=== PATIENT | female | born 1980 | race Caucasian/White ===

== ENCOUNTER 2018-08-22 10:48 | Emergency (ER) | payer OTHER ==
--- OUTSIDE RECORDS SUMMARY | 2018-08-22 10:50 | XMS REPORT | Clinical Summary ---
:1980 Author Organization [facility] Address [address] [place] [id number] Care Team Providers Name Role Phone Jennifer Cohen MD Primary Care Provider Allergies No Known Allergies Medications Medication Sig Dispensed Refills Start Date End Date Status metoprolol succinate XL 0 07/26/2017 Active (TOPROL-XL) 100 mg 24 hr tablet losartan (COZAAR) 100 MG 0 07/12/2017 Active tablet pravastatin (PRAVACHOL) 0 05/22/2017 Active 40 MG tablet levothyroxine (SYNTHROID, 0 08/10/2017 Active LEVOXYL) 125 mcg tablet diclofenac (VOLTAREN) 75 0 08/14/2017 Active MG EC tablet ERGOCALCIFEROL, VITAMIN Take by mouth. 0 Active D2, (VITAMIN D2 ORAL) Active Problems Not on file Encounters Date Type Specialty Care Team Description 08/22/2017 Telephone Otolaryngology Tanika Gardner MA after 08/21/2017 Family History Medical History Relation Name Comments Diabetes Father Heart disease Father Heart disease Maternal Grandfather Heart disease Mother Thyroid disease Mother Cancer Paternal Grandfather Thyroid disease Sister Relation Name Status Comments Father Maternal Grandfather Mother Paternal Grandfather Sister Social History Tobacco Use Types Packs/Day Years Used Date Former Smoker Smokeless Tobacco: Never Used Alcohol Use Drinks/Week oz/Week Comments No Sex Assigned at Date Recorded Not on file Job Start Date Occupation Industry Not on file Not on file Not on file Travel History Travel Start Travel End No recent travel history available. Last Filed Vital Signs Not on file Plan of Treatment Health Maintenance Due Date Last Done Comments CERVICAL CANCER SCREENING 2001 INFLUENZA VACCINE 12/10/2018 Results Not on fileafter 08/21/2017 Insurance Payer Benefit Plan / Group Subscriber ID Type Phone Address AETNA AETNA HMO,POS,EPO, MC/EC xxxxxxxxx HMO Advance Directives Patient has advance care planning documents on file. For more information, please contact:Cachorro [address] [place] [address]
[2018-08-22] MEDS ORDERED: ONDANSETRON 4 MG/2 ML VIAL ONE ×2 (11:24→12:15)
[2018-08-22] MEDS ORDERED: MORPHINE 2 MG/ML SYR ONE (11:24)
[2018-08-22] MEDS ORDERED: FAMOTIDINE 20 MG/2 ML VIAL IV ONE (11:25)
[2018-08-22] MEDS ORDERED: NA CHLORIDE 0.9% 1,000 ML ONE (11:25)
[2018-08-22 12:05] LABS: Absolute Lymphocytes (CBC) 1.4 K/uL (0.7-4.9); Absolute Monocytes 0.5 K/uL (0.1-1.3); Absolute Neutrophil 4.4 K/uL (1.8-8.0); Basophils % 0.7 % (0-1.3); Eosinophils % 1.1 % (0-4.4); Hematocrit 39.6 % (36.0-45.0); Lymphocytes % 22.3 % (15.3-44.8); MPV 8.8 fL (7.6-11.3); Monocytes % 8.1 % (3.3-12.3); RBC Red Blood Cell Count 4.36 M/uL (3.86-4.86)
[2018-08-22 12:05] LABS: Urine Bacteria <20 /HPF (<20)
[2018-08-22 12:06] LABS: Urine Amorphous Sediment 1+ /HPF (NONE SEEN); Urine Culture Reflex Order NOT NEEDED
--- NOTE | 2018-08-22 12:06 | RAD REPORT ---
EXAM DESCRIPTION: CT - Abdomen Pelvis W Contrast - 08/22/2018 11:40 am CLINICAL HISTORY: Abdominal pain/ right flank pain. COMPARISON: none. TECHNIQUE: Computed axial tomography of the abdomen pelvis was obtained. 100 cc Isovue-300 was admin istered intravenously. Oral contrast was not requested which limits evaluation of bowel. All CT scans are performed using dose optimization technique as appropriate and may include automated exposure control or mA/KV adjustment according to patient size. FINDINGS: The liver, spleen, pancreas, adrenal and kidneys appear unremarkable. There is no evidence of diverticulitis. A normal appendix A gastric band in place. A 13 millimeter right ovarian follicles present. Minimal free fluid The gallbladder has been removed. Mild prominence of common bile duct. Fluid is present within nondilated small bowel IMPRESSION: Mild prominence of the common bile duct probably is physiologic in this patient status p ost cholecystectomy. As pathology can also result in this appearance should be correlated clinically with appropriate lab values. . Fluid within nondilated small bowel is a nonspecific finding but can be seen in an enteritis
[2018-08-22 12:08] LABS: Urine Blood 2+ (NEG); Urine Glucose NEGATIVE (NEG); Urine Protein NEGATIVE (NEG)
[2018-08-22 12:14] LABS: Albumin 3.9 g/dL (3.4-5.0); Bilirubin Direct 0.1 mg/dL (0-0.2); Bilirubin Total 0.5 mg/dL (0.2-1.0); Magnesium 2.1 mg/dL (1.8-2.4); Potassium 4.1 mmol/L (3.5-5.1); Protein, Total 6.7 g/dL (6.4-8.2)
[2018-08-22] MEDS ORDERED: KETOROLAC 30 MG/ML INJ ONE (12:39)
--- NOTE | 2018-08-22 13:04 | EDPHYS ---
Physician Documentation [facility] Name: Ema Maurer Age: 38 yrs Sex: Female : 1980 Arrival Date: 08/22/2018 Time: 10:51 Bed 19 Private MD: Jennifer Cohen K ED Physician Shan Belcher HPI: 08/22 11:10 This 38 yrs old Female presents to ER via Ambulatory with complaints of Back cp Pain, Abdominal Pain, Nausea. 11:10 The patient presents with pain that is acute, with no known mechanism of injury, and cp tenderness. The symptoms are located in the right low back. 11:10 Onset: The symptoms/episode began/occurred 2 day(s) ago. cp 11:10 The patient presents with abdominal pain in the epigastric area. Associated signs and cp symptoms: Pertinent positives: nausea, Pertinent negatives: fever, incontinence, urinary retention, vomiting. Historical: - Allergies: 10:55 No Known Allergies; la1 - Home Meds: 11:51 Methotrexate (Anti-Rheumatic) Oral 20 mg 1 x weeekly [Active]; folic acid 1 mg oral tab em 1 tab once daily [Active]; Plaquenil 200 mg Oral tab 2 tabs once daily [Active]; pravastatin 40 mg oral tab 1 tab once daily [Active]; losartan 100 mg oral tab 1 tab once daily [Active]; metoprolol tartrate 100 mg Oral tab [Active]; levothyroxine 150 mcg tab 1 tab once daily [Active]; - PMHx: 10:55 Rheumatoid Arthritis; hashimotos thyroiditis; High Cholesterol; Hypertension; kidney la1 stones; bile duct obstruction; - PSHx: 10:55 Cholecystectomy; ERPC x 2; lap band; left knee; la1 - Immunization history:: Adult Immunizations up to date. - Social history:: Smoking status: Patient/guardian denies using tobacco. - Ebola Screening: : No symptoms or risks identified at this time. ROS: 11:15 Constitutional: Negative for body aches, chills, fever, poor PO intake. cp 11:15 Eyes: Negative for injury, pain, redness, and discharge. cp 11:15 Cardiovascular: Negative for chest pain, edema, palpitations. 11:15 Respiratory: Negative for cough, shortness of breath, wheezing. 11:15 Abdomen/GI: Positive for abdominal pain, nausea, of the epigastric area, Negative for vomiting, diarrhea, constipation, black/tarry stool, rectal bleeding. 11:15 Back: Positive for pain at rest, pain with movement, of the right low back. 11:15 : Negative for urinary symptoms. 11:15 Skin: Negative for rash. 11:15 Neuro: Negative for altered mental status, dizziness, headache, weakness. 11:15 All other systems are negative. Exam: 11:20 Constitutional: The patient appears in no acute distress, alert, awake, cp non-diaphoretic, non-toxic, well developed, well nourished. 11:20 Head/Face: Normocephalic, atraumatic. cp 11:20 Eyes: Periorbital structures: appear normal, Conjunctiva: normal, no exudate, no injection, Sclera: no appreciated abnormality, Lids and lashes: appear normal, bilaterally. 11:20 ENT: External ear(s): are unremarkable, Nose: is normal, Mouth: Lips: moist, Oral mucosa: pink and intact, moist, Posterior pharynx: is normal, airway is patent, no erythema, no exudate. 11:20 Chest/axilla: Inspection: normal, Palpation: is normal, no crepitus, no tenderness. 11:20 Cardiovascular: Rate: normal, Rhythm: regular. 11:20 Respiratory: the patient does not display signs of respiratory distress, Respirations: normal, no use of accessory muscles, no retractions, no splinting, no tachypnea, labored breathing, is not present, Breath sounds: are clear throughout, no decreased breath sounds, no stridor, no wheezing. 11:20 Abdomen/GI: Inspection: abdomen appears normal, Bowel sounds: active, all quadrants, Palpation: soft, in all quadrants, moderate abdominal tenderness, in the epigastric area, rebound tenderness, is not appreciated, voluntary guarding, is elicited in the epigastric area. 11:20 Back: pain, that is moderate, of the right low back, ROM is normal. 11:20 Skin: no rash present. 11:20 Neuro: Orientation: to person, place \T\ time. Mentation: is normal, Cerebellar function: is grossly normal, Motor: moves all fours, strength is normal, Sensation: is normal. Vital Signs: 10:55 BP 131 / 89; Pulse 72; Resp 16; Temp 99.1(TE); Pulse Ox 100% on R/A; Weight 95.25 kg; la1 Height 5 ft. 3 in. (160.02 cm); Pain 5/10; 11:30 BP 144 / 74; Pulse 66; Resp 20; Pulse Ox 100% on R/A; em 12:00 BP 124 / 87; Pulse 61; Resp 18; Pulse Ox 97% on R/A; Pain 4/10; em 13:00 BP 112 / 78; Pulse 63; Resp 16; Pulse Ox 100% on R/A; em 10:55 Body Mass Index 37.20 (95.25 kg, 160.02 cm) la1 MDM: 10:59 Patient medically screened. cp 11:30 Differential diagnosis: Hydronephrosis Perforated Ulcer Ureterolithiasis appendicitis, cp bowel obstruction, diverticulitis, pancreatitis, Peptic Ulcer Disease, Perf. Duodenal Ulcer, Perf. Gastric Ulcer. 13:00 Data reviewed: vital signs, nurses notes, lab test result(s), radiologic studies, CT cp scan. 13:00 Counseling: I had a detailed discussion with the patient and/or guardian regarding: the cp historical points, exam findings, and any diagnostic results supporting the discharge/admit diagnosis, lab results, radiology results, to return to the emergency department if symptoms worsen or persist or if there are any questions or concerns that arise at home. Response to treatment: the patient's symptoms have markedly improved after treatment, and as a result, I will discharge patient. 08/22 10:57 Order name: Urine Culture [facility] 08/22 10:57 Order name: Urine Microscopic Only; Complete Time: 12:15 snw 08/22 12:16 Interpretation: Normal except: URBC 5-10. cp 08/22 11:07 Order name: Basic Metabolic Panel cp 08/22 11:07 Order name: CBC with Diff cp 08/22 11:07 Order name: Creatinine for Radiology; Complete Time: 12:15 cp 08/22 11:07 Order name: Hepatic Function; Complete Time: 12:15 cp 08/22 12:40 Interpretation: Normal except: AST 14. cp 08/22 11:07 Order name: Lipase; Complete Time: 12:15 cp 08/22 11:07 Order name: CT Abd/Pelvis - W/Contrast; Complete Time: 12:15 cp 08/22 11:07 Order name: Magnesium; Complete Time: 12:15 cp 08/22 11:08 Order name: Basic Metabolic Panel; Complete Time: 12:15 EDMS 08/22 12:40 Interpretation: Normal except: CL 110; BUN 6; GFR 85. cp 08/22 11:08 Order name: CBC with Automated Diff; Complete Time: 12:15 EDMS 08/22 11:17 Order name: Urine Dipstick--Ancillary (enter results); Complete Time: 12:15 eb 08/22 11:17 Order name: Urine --Ancillary (enter results); Complete Time: 12:15 eb 08/22 10:57 Order name: Urine Test (obtain specimen); Complete Time: 11:06 snw 08/22 10:57 Order name: Urine Dipstick-Ancillary (obtain specimen); Complete Time: 11:06 snw 08/22 11:07 Order name: IV Saline Lock; Complete Time: 11:41 cp 08/22 11:07 Order name: Labs collected and sent; Complete Time: 11:41 cp 08/22 12:19 Order name: PO challenge; Complete Time: 12:48 cp Administered Medications: 11:28 Drug: Zofran 4 mg Route: IVP; Site: right antecubital; ss 12:04 Follow up: Response: No adverse reaction; Nausea unchanged em 11:28 Drug: Pepcid 20 mg Route: IVP; Site: right antecubital; ss 12:04 Follow up: Response: No adverse reaction em 11:28 Drug: morphine 2 mg Route: IVP; Site: right antecubital; ss 12:05 Follow up: Response: No adverse reaction; Pain is decreased em 11:28 Drug: NS 0.9% 1000 ml Route: IV; Rate: 1 bolus; Site: right antecubital; ss 13:22 Follow up: IV Status: Completed infusion; IV Intake: 1000ml em 12:04 Drug: Zofran 4 mg Route: IVP; Site: right antecubital; em 12:48 Follow up: Response: No adverse reaction; Nausea is decreased em 12:41 Drug: TORadol 30 mg Route: IVP; Site: right antecubital; la1 13:17 Follow up: Response: No adverse reaction; Pain is decreased em Disposition: 08/22/18 13:03 Discharged to Home. Impression: Epigastric pain, Low back pain. - Condition is Stable. - Discharge Instructions: Back Pain, Adult, Gastritis, Adult. - Prescriptions for Protonix 40 mg Oral Tablet, Delayed Release (E.C.) - take 1 tablet by ORAL route once daily for 10 days; 10 tablet. Zofran 4 mg Oral Tablet - take 1 tablet by ORAL route every 12 hours As needed; 20 tablet. - Medication Reconciliation Form, Thank You Letter, Antibiotic Education, Prescription Opioid Use form. - Follow up: Jon Tan MD; When: 2 - 3 days; Reason: abdominal pain continues. - Problem is new. - Symptoms have improved. Addendum: 08/24/2018 08:02 Co-signature as Attending Physician, Shan Belcher MD Available for consultation at p s1 all times. . Signatures: Dispatcher [employer] EDSD Sara Herrmann, ALEXIS-C SPEEDER HAND-Csnw Nathan Dominguez, CONTINUOUS ABSORPTION PROCESS OPERATOR CONTINUOUS ABSORPTION PROCESS OPERATOR em Chari Cristobal RN RN ss Robel Alvarez RN RN la1 Kevin Moe PA PA cp Shan Belcher MD MD ps1 Corrections: (The following items were deleted from the chart) 08/22 13:22 13:03 08/22/2018 13:03 Discharged to Home. Impression: Epigastric pain; Low back pain. em Condition is Stable. Forms are Medication Reconciliation Form, Thank You Letter, Antibiotic Education, Prescription Opioid Use. Follow up: Jon Tan; When: 2 - 3 days; Reason: abdominal pain continues. Problem is new. Symptoms have improved. cp
--- NOTE | 2018-08-22 13:04 | ER ---
Nurse's Notes [facility] Name: Ema Maurer Age: 38 yrs Sex: Female : 1980 Arrival Date: 08/22/2018 Time: 10:51 Bed 19 Private MD: Jennifer Cohen K Diagnosis: Epigastric pain;Low back pain Presentation: 08/22 10:56 Presenting complaint: Patient states: mid epigastric pain and right flank pain since la1 , felt better on Friday, pain came back last night. Transition of care: patient was not received from another setting of care. Onset of symptoms was August 22, 2018. Risk Assessment: Do you want to hurt yourself or someone else? Patient reports no desire to harm self or others. Initial Sepsis Screen: Does the patient meet any 2 criteria? No. Patient's initial sepsis screen is negative. Does the patient have a suspected source of infection? No. Patient's initial sepsis screen is negative. Care prior to arrival: None. 10:56 Method Of Arrival: Ambulatory la1 10:56 Acuity: APRIL 3 la1 Historical: - Allergies: 10:55 No Known Allergies; la1 - Home Meds: 11:51 Methotrexate (Anti-Rheumatic) Oral 20 mg 1 x weeekly [Active]; folic acid 1 mg oral tab em 1 tab once daily [Active]; Plaquenil 200 mg Oral tab 2 tabs once daily [Active]; pravastatin 40 mg oral tab 1 tab once daily [Active]; losartan 100 mg oral tab 1 tab once daily [Active]; metoprolol tartrate 100 mg Oral tab [Active]; levothyroxine 150 mcg tab 1 tab once daily [Active]; - PMHx: 10:55 Rheumatoid Arthritis; hashimotos thyroiditis; High Cholesterol; Hypertension; kidney la1 stones; bile duct obstruction; - PSHx: 10:55 Cholecystectomy; ERPC x 2; lap band; left knee; la1 - Immunization history:: Adult Immunizations up to date. - Social history:: Smoking status: Patient/guardian denies using tobacco. - Ebola Screening: : No symptoms or risks identified at this time. Screenin:10 Abuse screen: Denies threats or abuse. Nutritional screening: No deficits noted. em Tuberculosis screening: No symptoms or risk factors identified. Fall Risk None identified. Assessment: 11:10 General: Appears in no apparent distress. uncomfortable, Behavior is calm, cooperative, em Denies fever. Pain: Complains of pain in right lower back and epigastric area Pain currently is 5 out of 10 on a pain scale. at worst was 10 out of 10 on a pain scale. Quality of pain is described as sharp, Pain began 2-3 days ago. Neuro: Level of Consciousness is awake, alert, obeys commands, Oriented to person, place, time, situation. Cardiovascular: Capillary refill < 3 seconds Patient's skin is warm and dry. Respiratory: Reports shortness of breath pain with respiration Airway is patent Respiratory effort is even, unlabored, Respiratory pattern is regular, symmetrical, Breath sounds are clear bilaterally. GI: Abdomen is round non-distended, Bowel sounds present X 4 quads. Abd is soft X 4 quads Abdomen is tender to palpation in epigastric area Reports nausea, Patient currently denies diarrhea. : Denies burning with urination, urinary frequency. Derm: Skin is intact, is healthy with good turgor, Skin is pink, warm \T\ dry. Musculoskeletal: Capillary refill < 3 seconds, Range of motion: intact in all extremities. 11:15 Reassessment: The previous assessment is accurate, call light remains within reach. ss 11:55 Reassessment: Patient appears in no apparent distress at this time. Patient and/or em family updated on plan of care and expected duration. Pain level reassessed. reports nausea medication has not helped, provider notified, new medication orders received. 13:16 Reassessment: Patient appears in no apparent distress at this time. Patient and/or em family updated on plan of care and expected duration. Pain level reassessed. Patient is alert, oriented x 3, equal unlabored respirations, skin warm/dry/pink. rates pain 3/10, tolerated PO challenge well Patient states feeling better. Patient states symptoms have improved. Vital Signs: 10:55 BP 131 / 89; Pulse 72; Resp 16; Temp 99.1(TE); Pulse Ox 100% on R/A; Weight 95.25 kg; la1 Height 5 ft. 3 in. (160.02 cm); Pain 5/10; 11:30 BP 144 / 74; Pulse 66; Resp 20; Pulse Ox 100% on R/A; em 12:00 BP 124 / 87; Pulse 61; Resp 18; Pulse Ox 97% on R/A; Pain 4/10; em 13:00 BP 112 / 78; Pulse 63; Resp 16; Pulse Ox 100% on R/A; em 10:55 Body Mass Index 37.20 (95.25 kg, 160.02 cm) la1 ED Course: 10:51 Patient arrived in ED. mr 10:52 Jennifer Cohen MD is Private Physician. mr 10:57 Triage completed. la1 10:57 Arm band placed on left wrist. la1 10:58 Nathan Dominguez LVN is Primary Nurse. em 10:59 Kevin Moe PA is PHCP. cp 10:59 Shan Belcher MD is Attending Physician. cp 11:10 Patient has correct armband on for positive identification. Placed in gown. Bed in low em position. Call light in reach. Adult w/ patient. Pulse ox on. NIBP on. 11:11 Urine Culture Sent. mh5 11:11 Urine Microscopic Only Sent. mh5 11:17 Radiology exam delayed due to test not completed at this time. vm2 11:39 CT completed. Patient tolerated procedure well. Patient moved back from CT. vm2 11:40 CT Abd/Pelvis - W/Contrast In Process Unspecified. EDMS 13:03 Jon Tan MD is Referral Physician. cp 13:16 No provider procedures requiring assistance completed. IV discontinued, intact, em bleeding controlled, No redness/swelling at site. Pressure dressing applied. Administered Medications: 11:28 Drug: Zofran 4 mg Route: IVP; Site: right antecubital; ss 12:04 Follow up: Response: No adverse reaction; Nausea unchanged em 11:28 Drug: Pepcid 20 mg Route: IVP; Site: right antecubital; ss 12:04 Follow up: Response: No adverse reaction em 11:28 Drug: morphine 2 mg Route: IVP; Site: right antecubital; ss 12:05 Follow up: Response: No adverse reaction; Pain is decreased em 11:28 Drug: NS 0.9% 1000 ml Route: IV; Rate: 1 bolus; Site: right antecubital; ss 13:22 Follow up: IV Status: Completed infusion; IV Intake: 1000ml em 12:04 Drug: Zofran 4 mg Route: IVP; Site: right antecubital; em 12:48 Follow up: Response: No adverse reaction; Nausea is decreased em 12:41 Drug: TORadol 30 mg Route: IVP; Site: right antecubital; la1 13:17 Follow up: Response: No adverse reaction; Pain is decreased em Intake: 13:22 IV: 1000ml; Total: 1000ml. em Outcome: 13:03 Discharge ordered by MD. cp 13:20 Discharged to home ambulatory, with family. em 13:20 Condition: good 13:20 Discharge instructions given to patient, family, Instructed on discharge instructions, follow up and referral plans. medication usage, Demonstrated understanding of instructions, follow-up care, medications, Prescriptions given X 2. 13:22 Patient left the ED. em Signatures: Dispatcher [employer] Clarisse Galeano Dominguez, Nathan, STORE PRODUCT DEMONSTRATOR STORE PRODUCT DEMONSTRATOR em Chari Cristobal RN RN ss Attema, Lee, RN RN la1 Kevin Moe PA PA cp Martinez, Maria [address] StreetDarsh[address] [facility]
[2018-08-22 13:29] VITALS: TEMP 99.1
[2018-08-22 13:33] VITALS: BP 112/78; O2SAT 100
== END 2018-08-22 13:22 | disposition home or self-care (01) ==
LOC: ER 10:48
DX: M54.5 Low back pain (principal); R10.13 Epigastric pain; E06.3 Autoimmune thyroiditis; I10 Essential (primary) hypertension; E78.00 Pure hypercholesterolemia, unspecified
CPT/HCPCS: 36415; 74177; 80048; 80076; 81003; 81015; 81025; 83690; 83735; 85025; 87086; 87088; 96361; 96374; 96375; 99284; J2270; J2405; J7030; Q9967

== ENCOUNTER 2019-05-22 13:35 | Emergency (ER) | payer OTHER ==
[2011-12-16 15:12] VITALS: BP 163/97
--- NOTE | 2019-05-22 15:53 | RAD REPORT ---
EXAM DESCRIPTION: CT - Soft Tissue Neck W/Contr - 05/22/2019 3:03 pm CLINICAL HISTORY: Neck pain, possible abscess TECHNIQUE: During dynamic enhancement using 100 milliliters nonionic IV contrast, axial 5 millimeter thick images of the neck were obtained. All CT scans are performed using dose optimization technique as appropriate and may include automated exposure control or mA/KV adjustment according to patient size. FINDINGS: Intracranial portion the examination is unremarkable. No globe or orbital content abnormal ity. Mastoid air cells and partially visualized paranasal sinuses are clear. Infectious/inflammatory stranding changes are present in the midline and right side lower anterior ne ck. This is without air or defined abscess. Stranding changes are seen both superficial and deep to t he inferior margin of the platysma. The adjacent inferior margin of the sternocleidomastoid muscle sh ows no involvement. No thyroid gland involvement. No pharyngeal mucosal mass or asymmetric soft tissues. Parapharyngeal fat is unremarkable. The adenoi d and tonsillar regions show no suspicious findings. No soft palate or tongue base abnormality seen. Epiglottis and vocal cords show no suspicious finding. Graft material and fusion hardware present in the C5-6 and C6-7 disc spaces. Prevertebral soft tissue in the C5- 7 levels shows no mass, asymmetry or abscess. No infectious or inflammatory stranding see n tracking between the surgical site in the stranding in the anterior neck fatty tissues. IMPRESSION: Infectious/inflammatory stranding in the skin and subcutaneous fatty tissues of the lowe r right neck. Infectious/ inflammatory stranding is seen both superficial and deep to the platysma. This edematous/ infectious stranding does not extend deep to the prevertebral soft tissues at the surgical site. No abscess or drainable fluid collections seen. No air in the soft tissues.
--- NOTE | 2019-05-22 15:58 | ER ---
Nurse's Notes [facility] Name: Ema Maurer Age: 38 yrs Sex: Female : 1980 Arrival Date: 05/22/2019 Time: 13:37 Bed 23 Private MD: Jennifer Cohen K Diagnosis: Local infection of the skin and subcutaneous tissue, unspecified Presentation: 05/22 13:38 Presenting complaint: Patient states: 2 neck disks removed on 05/01/19 and the redness sv started yesterday and today started with discharge. Transition of care: patient was not received from another setting of care. Onset of symptoms was May 21, 2019. Risk Assessment: Do you want to hurt yourself or someone else? Patient reports no desire to harm self or others. Care prior to arrival: None. 13:38 Method Of Arrival: Ambulatory sv 13:38 Acuity: APRIL 3 sv Historical: - Allergies: 13:40 No Known Drug Allergies; sv - PMHx: 13:40 bile duct obstruction; hashimotos thyroiditis; High Cholesterol; Hypertension; Kidney sv stones; Rheumatoid Arthritis; - PSHx: 13:40 Cholecystectomy; ERPC x 2; lap band; left knee; sv - Immunization history:: Adult Immunizations. - Social history:: Smoking status: Patient/guardian denies using tobacco. - Ebola Screening: : Patient negative for fever greater than or equal to 101.5 degrees Fahrenheit, and additional compatible Ebola Virus Disease symptoms Patient denies exposure to infectious person Patient denies travel to an Ebola-affected area in the 21 days before illness onset No symptoms or risks identified at this time. Screenin:00 Abuse screen: Denies threats or abuse. Denies injuries from another. Nutritional sg screening: No deficits noted. Tuberculosis screening: No symptoms or risk factors identified. Never had TB. Fall Risk None identified. Assessment: 14:00 General: Appears in no apparent distress. well groomed, well developed, well nourished, sg Behavior is calm, cooperative, appropriate for age. Pain: Complains of pain in right aspect of thyroid Quality of pain is described as aching. Neuro: Level of Consciousness is awake, alert, obeys commands. Cardiovascular: Capillary refill is brisk in bilateral fingers. Respiratory: Airway is patent Respiratory effort is even, unlabored, Respiratory pattern is regular, symmetrical. GI: Abdomen is round non-distended, Reports tolerance of fluids, tolerance of food. : No signs and/or symptoms were reported regarding the genitourinary system. EENT: Oral mucosa is moist. Throat is clear. Derm: Skin is pink, warm \T\ dry. Derm: Abscess located on right aspect of thyroid is nickel sized, has no drainage, is red, is raised. Musculoskeletal: Circulation, motion, and sensation intact. Range of motion: intact in all extremities. Vital Signs: 13:40 BP 121 / 84; Pulse 77; Resp 16; Temp 98.2(O); Pulse Ox 100% ; Weight 99.79 kg; Height 5 sv ft. 4 in. (162.56 cm); Pain 0/10; 15:15 BP 120 / 88; Pulse 83; Resp 17; Pulse Ox 100% on R/A; sg 13:40 Body Mass Index 37.76 (99.79 kg, 162.56 cm) sv ED Course: 13:37 Patient arrived in ED. as 13:38 Jennifer Cohen MD is Private Physician. as 13:38 Arm band placed on. sv 13:39 Triage completed. sv 13:47 Tam[facility] Tidwell [facility]C [facility]. kb 13:48 Kaveh Alonso MD is Attending Physician. kb 14:00 Patient has correct armband on for positive identification. Bed in low position. Call sg light in reach. Side rails up X2. Pulse ox on. NIBP on. Warm blanket given. Head of bed elevated. 14:00 Initial lab(s) drawn, by me, sent to lab. Inserted saline lock: 22 gauge in left sg antecubital area, using aseptic technique. Blood collected. 14:01 Isaac Fuchs, RN is Primary Nurse. sg 14:17 Radiology exam delayed due to lab results not completed at this time. test bq not completed at this time. 14:[address] Scan. sg 15:00 CT completed. Patient tolerated procedure well. Patient moved back from CT. bq 15:03 CT Soft Tissue Neck W/contr In Process Unspecified. EDMS 16:00 No provider procedures requiring assistance completed. IV discontinued, intact, sg bleeding controlled, No redness/swelling at site. Pressure dressing applied. Administered Medications: 16:04 Drug: Bactrim (160 mg-800 mg (DS) 1 tablet Route: PO; sg Outcome: 15:57 Discharge ordered by . marita 16:00 Discharged to home ambulatory, with family. sg 16:00 Condition: good 16:00 Discharge instructions given to patient, family, Instructed on discharge instructions, follow up and referral plans. medication usage, safety practices, Demonstrated understanding of instructions, follow-up care, medications, Prescriptions given X 1. 16:07 Patient left the ED. ms Signatures: Dispatcher [employer] EDTamra Solorzano, ROBERT ESPINOZA-Veda Michael, RN RN Isaac Quiñones RN RN sg Daria Hinton Amelia as Villarreal, Maria ms Corrections: (The following items were deleted from the chart) 13:43 13:40 Pulse 77bpm; Resp 16bpm; Pulse Ox 100%; Temp 98.2F Oral; 99.79 kg; Height 5 ft. 4 sv in.; BMI: 37.7; Pain 0/10; sv
--- NOTE | 2019-05-22 15:58 | EDPHYS ---
Physician Documentation [facility] Name: Ema Maurer Age: 38 yrs Sex: Female : 1980 Arrival Date: 05/22/2019 Time: 13:37 Bed 23 Private MD: Jennifer Cohen K ED Physician Kaveh Alonso HPI: 05/22 14:34 This 38 yrs old Female presents to ER via Ambulatory with complaints of kb Abscess, Neck Pain, <24hrs Old. 14:34 the patient presents with a swollen area of the neck. Description: draining, kb erythematous, hot, swollen. Onset: The symptoms/episode began/occurred yesterday. Possible cause(s): unknown. Associated signs and symptoms: Pertinent positives: drainage, erythema, swelling. Modifying factors: the symptoms are alleviated by nothing, the symptoms are aggravated by squeezing the lesion and expressing the contents, touching. Severity of symptoms: At their worst the symptoms were mild, moderate, in the emergency department the symptoms are unchanged. The patient has not experienced similar symptoms in the past. The patient has not recently seen a physician. Historical: - Allergies: 13:40 No Known Drug Allergies; sv - PMHx: 13:40 bile duct obstruction; hashimotos thyroiditis; High Cholesterol; Hypertension; Kidney sv stones; Rheumatoid Arthritis; - PSHx: 13:40 Cholecystectomy; ERPC x 2; lap band; left knee; sv - Immunization history:: Adult Immunizations. - Social history:: Smoking status: Patient/guardian denies using tobacco. - Ebola Screening: : Patient negative for fever greater than or equal to 101.5 degrees Fahrenheit, and additional compatible Ebola Virus Disease symptoms Patient denies exposure to infectious person Patient denies travel to an Ebola-affected area in the 21 days before illness onset No symptoms or risks identified at this time. ROS: 14:31 Constitutional: Negative for fever, chills, and weight loss, ENT: Negative for injury, kb pain, and discharge, Cardiovascular: Negative for chest pain, palpitations, and edema, Respiratory: Negative for shortness of breath, cough, wheezing, and pleuritic chest pain, Abdomen/GI: Negative for abdominal pain, nausea, vomiting, diarrhea, and constipation, Back: Negative for injury and pain, MS/Extremity: Negative for injury and deformity, Neuro: Negative for headache, weakness, numbness, tingling, and seizure. 14:31 Skin: Positive for erythema, swelling, surgical incision with drainage. Exam: 14:31 Constitutional: This is a well developed, well nourished patient who is awake, alert, kb and in no acute distress. Head/Face: Normocephalic, atraumatic. ENT: Nares patent. No nasal discharge, no septal abnormalities noted. Tympanic membranes are normal and external auditory canals are clear. Oropharynx with no redness, swelling, or masses, exudates, or evidence of obstruction, uvula midline. Mucous membranes moist. Neck: Trachea midline, no thyromegaly or masses palpated, and no cervical lymphadenopathy. Supple, full range of motion without nuchal rigidity, or vertebral point tenderness. No Meningismus. Chest/axilla: Normal chest wall appearance and motion. Nontender with no deformity. No lesions are appreciated. Cardiovascular: Regular rate and rhythm with a normal S1 and S2. No gallops, murmurs, or rubs. Normal PMI, no JVD. No pulse deficits. Respiratory: Lungs have equal breath sounds bilaterally, clear to auscultation and percussion. No rales, rhonchi or wheezes noted. No increased work of breathing, no retractions or nasal flaring. Abdomen/GI: Soft, non-tender, with normal bowel sounds. No distension or tympany. No guarding or rebound. No evidence of tenderness throughout. MS/ Extremity: Pulses equal, no cyanosis. Neurovascular intact. Full, normal range of motion. Neuro: Awake and alert, GCS 15, oriented to person, place, time, and situation. Cranial nerves II-XII grossly intact. Motor strength 5/5 in all extremities. Sensory grossly intact. Cerebellar exam normal. Normal gait. 14:31 Skin: healing surgical incision to anterior lower aspect of neck. Pt reports she accidentally scratched it causing it to bleed. Reports she pushed on it when it was opened and a lot of drainage came out so she came in. Reports redness and tenderness started last night. Had discectomy 3 weeks ago, cleared from c-collar on Friday and has been massaging it since then.. Vital Signs: 13:40 BP 121 / 84; Pulse 77; Resp 16; Temp 98.2(O); Pulse Ox 100% ; Weight 99.79 kg; Height 5 sv ft. 4 in. (162.56 cm); Pain 0/10; 15:15 BP 120 / 88; Pulse 83; Resp 17; Pulse Ox 100% on R/A; sg 13:40 Body Mass Index 37.76 (99.79 kg, 162.56 cm) sv MDM: 13:48 Patient medically screened. kb 14:30 Data reviewed: vital signs, nurses notes. Data interpreted: Pulse oximetry: on room air kb is 100 %. Interpretation: normal. 15:57 Counseling: I had a detailed discussion with the patient and/or guardian regarding: the kb historical points, exam findings, and any diagnostic results supporting the discharge/admit diagnosis, lab results, radiology results, the need for outpatient follow up, a family practitioner, to return to the emergency department if symptoms worsen or persist or if there are any questions or concerns that arise at home. 05/22 13:59 Order name: Creatinine for Radiology; Complete Time: 14:56 kb 05/22 13:59 Order name: CT Soft Tissue Neck W/contr; Complete Time: 15:54 kb 05/22 13:59 Order name: IV Start; Complete Time: 14:34 kb Administered Medications: 16:04 Drug: Bactrim (160 mg-800 mg (DS) 1 tablet Route: PO; sg Disposition: 17:07 Co-signature as Attending Physician, Kaveh Alonso MD. rn Disposition: 05/22/19 15:57 Discharged to Home. Impression: Local infection of the skin and subcutaneous tissue, unspecified. - Condition is Stable. - Discharge Instructions: Wound Infection, [id number]. - Prescriptions for Bactrim DS 800- 160 mg Oral Tablet - take 1 tablet by ORAL route every 12 hours for 10 days; 20 tablet. - Medication Reconciliation Form, Thank You Letter, Antibiotic Education, Prescription Opioid Use form. - Follow up: Emergency Department; When: As needed; Reason: Worsening of condition. Follow up: Private Physician; When: 2 - 3 days; Reason: Recheck today's complaints, Continuance of care, Re-evaluation by your physician. Signatures: Dispatcher [employer] Tamra Pierce, ROBERT ESPINOZA-Veda Michael RN RN Isaac Fuchs RN RN Lyndsey Hall ms, Roman, MD MD yarn packer: (The following items were deleted from the chart) 16:07 15:57 05/22/2019 15:57 Discharged to Home. Impression: Local infection of the skin and ms subcutaneous tissue, unspecified. Condition is Stable. Forms are Medication Reconciliation Form, Thank You Letter, Antibiotic Education, Prescription Opioid Use. Follow up: Emergency Department; When: As needed; Reason: Worsening of condition. Follow up: Private Physician; When: 2 - 3 days; Reason: Recheck today's complaints, Continuance of care, Re-evaluation by your physician. kb
[2019-05-22] MEDS ORDERED: SMZ./TMP. 800/160 MG TABLET ONE (16:03)
== END 2019-05-22 16:07 | disposition home or self-care (01) ==
LOC: ER 13:35
DX: T81.41XA Infection following a procedure, superficial incisional surgical site, initial encounter (principal); I10 Essential (primary) hypertension
CPT/HCPCS: 36415; 70491; 99284

== ENCOUNTER 2022-03-26 07:26 | Inpatient (IN) | payer BC ==
--- OUTSIDE RECORDS SUMMARY | 2022-03-26 07:32 | XMS REPORT | Continuity of Care Document ---
:1980 Author Organization [facility] t Address [address] [place] [address] Care Team Providers Name Role Phone Jennifer Cohen MD Primary Care Physician Steven Sanchez Attending Clinician SHADI FAN Attending Clinician Unavailable Shadi Fan MD Attending Clinician Severiano Hernandez Attending Clinician SEVERIANO DUMONT Attending Clinician Unavailable DARIN SAMS Attending Clinician Unavailable Williams Maldonado Attending Clinician Unavailable ZAYNAB_TNC_Davis_S Attending Clinician Unavailable ENRICO RAYMOND M.D. Attending Clinician Unavailable CARMITA RESENDEZ NP Attending Clinician Unavailable SHADI FAN Admitting Clinician Unavailable ZAYNAB_SHARON_Davis_S Admitting Clinician Unavailable Payers Payer Name Policy Type Policy Number Effective Date Expiration Date [place] BCB[place] P[place] AND [id number] 2021 00:00:00 OUT OF STATE [place] OF [place] - [id number] 2021 00:00:00 [place] [id number] 2020 00:00:00 [place] ([place] Problems Condition Condition Condition Status Onset Resolution Last Treating Co mments Source Name Details Category Date Date Treatment Clinician Date Hyperlipid Hyperlipid Disease Active U nivers emia emia 11-16 ity of 00:00: [place] 00 Medical Branch Essential Essential Disease Active Uni vers hypertensi hypertensi 11-16 it y of on on 00:00: [place] [facility] Hypothyroi Hypothyroi Disease Active U nivers dism due dism due 11-16 ity of to to 00:00: [place] acquired 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 Elevated Elevated Disease Active Unive rs hemoglobin hemoglobin 11-16 it y of A1c A1c 00:00: [place] [facility] M54.50 - M54.50 - Diagnosis Active 2022-01-24 Memoria LOW BACK LOW BACK 15:04:00 l PAIN, PAIN, Sparkill UNSPECIFIE UNSPECIFIE D D Active MH OPID [place] Left knee Left knee Problem Active [facility] pain pain [facility] ans Complex Complex Problem Active [facility] tear of tear of Physici medial medial ans meniscus meniscus of left of left knee as knee as current current injury, injury, initial initial encounter encounter Allergies, Adverse Reactions, Alerts Allergy Allergy Status Severity Reaction(s) Onset Inactive Treating Comm ents Source Name Type Date Date Clinician NO KNOWN Drug Active Univers ALLERGIE Class ity of S [facility] Family History Family Member Diagnosis Comments Start Date Stop Date Source Natural father Diabetes [facility] Natural father Heart disease [facility] Maternal grandfather Heart disease [facility] Natural mother Heart disease [facility] Natural mother Thyroid disease [facility] Paternal grandfather Cancer [facility] Natural sister Thyroid disease [facility] Social History Social Habit Start Date Stop Date Quantity Comments Source History SDOH University o f Alcohol Frequency [place] M edical [facility] History SDOH University o f Alcohol Std Drinks [place] [facility] [place] History [facility] University o f Alcohol Binge [place] Medic al Branch History of tobacco Current smoker [facility] Exposure to 2022-01-11 2022-01-21 Not sure [facility] SARS-CoV-2 (event) 00:00:00 11:45:00 Alcohol intake 2019-03-03 2019-03-03 Current [facility] 00:00:00 00:00:00 non-drinker of Hospital alcohol (finding) Cigarettes smoked 2015-11-17 2015-11-17 Univers ity of current (pack per 00:00:00 00:00:00 [facility] ) - Reported Branch Cigarette 2015-11-17 2015-11-17 University of pack-years 00:00:00 00:00:00 [facility] Tobacco use and 2015-11-17 2015-11-17 Never used Universit y of exposure 00:00:00 00:00:00 [facility] Alcohol Comment 2015-11-17 2015-11-17 1 glass wine Univers ity of 00:00:00 00:00:00 yearly [facility] Sex Ass[birth year] At [birth year] [facility] 00:00:00 00:00:00 Hospital Smoking Status Start Date Stop Date Source Tobacco smoking [facility] consumption unknown [facility] Former smoker 2015-11-17 00:00:00 2015-11-17 [place] [facility] f [place] 00:00:00 [facility] Medications Ordered Filled Start Stop Current Ordering Indication Dosage Frequency Signature Comments Components Source Medication Medication Date Date Medication? Clinician (SIG) Name Name ERGOCALCIFE 2021-05 Yes Take by Met guy REYNAGA, [address] VITAMIN D2, 01:33: Hospit a (VITAMIN D2 24 l ORAL) hydroxychlo 2021-05 Yes Q.5D Take by Met guy roquine [address] (PLAQUENIL) 01:33: (two) Hospi ta 200 mg 24 times a l tablet day. folic acid 2021-05 Yes 1mg QD Take 1 mg Me thodi (FOLVITE) 1 05-[address] MG tablet 01:33: daily. Hospit a 24 l methotrexat 2021-05 Yes Q7D Take by Met tovar e 2.5 MG -[address] tablet 01:33: a week. Hospita 24 l pregabalin 2021-05 Yes 50mg Q.5D Take 50 mg M ethodi (LYRICA) 50 05-[address] MG capsule 01:33: (two) Hospit a 24 times a l day. ondansetron No 4mg 4 mg, Slow Univers (ZOFRAN 5-03 05-03 IV Push, ity of (PF)) 13:00: 12:07 ONCE, 1 [place] injection 4 00 :00 dose, On Medi mary mg e 09/11/21 Branch at 0800, HELEN FENTanyl PF 2021- No 75ug 75 mcg, Un benito (SUBLIMAZE 09-11 Slow IV ity o f (PF)) 13:00: 12:08 Push, [place] injection 00 :00 ONCE, 1 Medical 75 mcg dose, On Branch Fri09/11/21 at 0800, Routine ondansetron 2021- No 4mg 4 mg, Slow Univers (ZOFRAN 09-11 IV Push, ity of (PF)) 12:30: 11:37 ONCE, 1 [place] injection 4 00 :00 dose, On Medi mary mg Fri09/11/21 Branch at 0730, HELEN ketorolac 2021- No 30mg 30 mg, Unive rs (TORADOL) 09-11 Slow IV ity of injection 12:30: 11:36 Push, [place] 30 mg 00 :00 ONCE, 1 Medical dose, On Branch Fri09/11/21 at 0730, Routine
body service team member approving Restricted medication : SHADI FAN ketorolac 2021-0 Yes [id number] 10mg Take 1 U nivers 10 mg 5-03 tablet by ity of tablet 00:00: mouth [place] 00 every 6 Medical (six) Branch hours as needed for Pain (scale 7-10) or Alternate with [place] for pain scale 4-6. ondansetron 0 Yes [id number] 4mg Take 1 Univers (ZOFRAN) 4 -03 tablet by ity of mg tablet 00:00: mouth [place] 00 every 8 Medical (eight) Branch hours as needed for Nausea and Vomiting (N/V). methocarbam 0 Yes [id number] 750mg Take 1 Univers oL 750 mg 5-03 tablet by ity o f tablet 00:00: mouth [place] 00 every 6 Medical (six) Branch hours as needed for Pain (scale 7-10) (MUSCLE SPASM). HYDROcodone 0 2021- No 4647 1{tbl} Take 1 U nivers -acetaminop 5- 05-11 tablet by it y of hen 10-325 00:00: 04:59 mouth [place] mg tablet 00 :00 every 6 Medical (six) Branch hours as needed for Pain (scale 7-10) for up to 7 days. Indication s: acute pain proMETHazin 2021- No 25mg 25 mg, IV Univers e 07-24-15 Piggyback, ity of (PHENERGAN) 21:30: 20:29 [place]CE[place] 1 [place] mg in 00 :00 dose, On Medical NaCl 0.9% Tu Branch (NS) 50 mL 07/24/21 at IV 1630, HELEN piggyback dicyclomine Yes 20mg 20 mg, Univ ers (BENTYL) 15 Intramuscu ity o f injection 21:00: lar, QID, [place] as 20 mg 00 First dose Medical on Fri Branch 07/24/21 at 1600, Until Discontinu ed, Routine NaCl 0.9% 2021- No 1000mL at 999 Uni vers (NS) bolus 07-2415 mL/hr, ity of infusion 20:30: 20:29 1,000 mL, [place] as 1,000 mL 00 :00 IV Medical Infusion, Branch ONCE, 1 dose, On 07/24/21 at 1530, STAT ondansetron 2021- No 4mg 4 mg, Slow Univers (ZOFRAN 07-24-15 IV Push, ity of (PF)) 20:30: 19:34 ONCE, 1 [place] injection 4 00 :00 dose, On Medi mary mg Fri Branch 07/24/21 at 1530, HELEN ondansetron 0 Yes [id number] 4mg Take 1 Univers 4 mg 3-15 tablet by ity of disintegrat 00:00: mouth [place] ing tablet 00 every 8 Medica l (eight) Branch hours as needed for Nausea and Vomiting (N/V). ondansetron 0 Yes [id number] 4mg Take 1 Univers 4 mg 3-15 tablet by ity of disintegrat 00:00: mouth [place] ing tablet 00 every 8 Medica l (eight) Branch hours as needed for Nausea and Vomiting (N/V). hydroxychlo 2018-0 Yes Q.5D Take by Met hodi roquine 8- mouth [address] st (PLAQUENIL) 09:30: (two) Hospi ta 200 mg 59 times a l tablet day. folic acid Yes 1mg QD Take 1 mg Me thodi (FOLVITE) 1 01-[address] MG tablet 09:30: daily. Hospit a 59 l methotrexat 0 Yes Q7D Take by Met guy e 2.5 MG 01-[address] tablet 09:30: a week. Hospita 59 l pregabalin Yes 50mg Q.5D Take 50 mg M ethodi (LYRICA) 50 01-[address] MG capsule 09:30: (two) Hospit a 59 times a l day. ERGOCALCIFE Yes Take by Met guy ROL, 01-[address] VITAMIN D2, 09:29: Hospit a (VITAMIN D2 34 l ORAL) levothyroxi Yes Method i ne 4- st (SYNTHROID, 00:00: Hospit a LEVOXYL) 00 l 125 mcg tablet levothyroxi Yes Method i ne 4- st (SYNTHROID, 00:00: Hospit a LEVOXYL) 00 l 125 mcg tablet metoprolol Yes Methodi succinate 3-17 st XL 00:00: Hospita (TOPROL-XL) 00 l 100 mg 24 hr tablet metoprolol Yes Methodi succinate 3-17 st XL 00:00: Hospita (TOPROL-XL) 00 l 100 mg 24 hr tablet losartan Yes Methodi (COZAAR) 3-03 st 100 MG 00:00: Hospita tablet 00 l losartan Yes Methodi (COZAAR) 3-03 st 100 MG 00:00: Hospita tablet 00 l pravastatin Yes Method i (PRAVACHOL) 1-11 st 40 MG 00:00: Hospita tablet 00 l pravastatin Yes Method i (PRAVACHOL) 1-11 st 40 MG 00:00: Hospita tablet 00 l pravastatin 2016-05 Yes 40mg Take 1 Univ ers 40 mg 0-02 tablet by ity of tablet 00:00: mouth at [place] 00 bedtime. Medical Branch metoprolol 2016-05 Yes 50mg Take 1 Unive rs tartrate 50 0-02 tablet by ity of mg tablet 00:00: mouth 2 (two) Medical times Branch daily. levothyroxi 2016-05 Yes 137ug Take 1 Uni vers ne 0-02 tablet by ity of (SYNTHROID) 00:00: mouth [place] 137 mcg 00 every Medical tablet morning. Branch hydroCHLORO 2016-05 Yes 12.5mg Take 1 Un benito thiazide 0-02 capsule by ity o f 12.5 mg 00:00: mouth [place] capsule 00 daily. Medical Branch pravastatin 2016-05 Yes 40mg Take 1 Univ ers 40 mg 0-02 tablet by ity of tablet 00:00: mouth at [place] 00 bedtime. Medical Branch metoprolol 2016-05 Yes 50mg Take 1 Unive rs tartrate 50 0-02 tablet by ity of mg tablet 00:00: mouth 2 [place] 00 (two) Medical times Branch daily. levothyroxi 2016-05 Yes 137ug Take 1 Uni vers ne 0-02 tablet by ity of (SYNTHROID) 00:00: mouth [place] 137 mcg 00 every Medical tablet morning. Branch hydroCHLORO 2016-05 Yes 12.5mg Take 1 Un benito thiazide 0-02 capsule by ity o f 12.5 mg 00:00: mouth [place] capsule 00 daily. Medical Branch naproxen Yes [id number] Take 1 tab Univers 375 mg 8-16 PO BID prn ity of tablet 00:00: with food [place] 00 for pain Medical not Branch relieved by tylenol arthritis. naproxen Yes [id number] Take 1 tab Univers 375 mg 8-16 PO BID prn ity of tablet 00:00: with food [place] 00 for pain Medical not Branch relieved by tylenol arthritis. Vital Signs Vital Name Observation Time Observation Value Comments Source Systolic blood 2021-09-11 12:00:00 170 mm[Hg] Univer sity of pressure [facility] Diastolic blood 2021-09-11 12:00:00 107 [facility]Hg[facility] Heart rate 2021-09-11 12:00:00 80 /min [facility] Respiratory rate 2021-09-11 12:00:00 20 /min [facility] Oxygen saturation in 2021-09-11 12:00:00 100 /min [facility] Arterial blood by [facility] Pulse oximetry Branch Body temperature 2021-09-11 10:30:00 36.22 Valerie [facility] Body height 2021-09-11 10:30:00 162.6 cm [facility] Body weight 2021-09-11 10:30:00 83.008 kg [facility] BMI 2021-09-11 10:30:00 31.41 kg/m2 [facility] Systolic blood 2021-07-24 21:36:30 135 mm[facility]Hg] [facility] Diastolic blood 2021-07-24 21:36:30 90 mm[Hg] [facility] Heart rate 2021-07-24 21:36:30 92 /min [facility] Respiratory rate 2021-07-24 21:36:30 20 /min [facility] Oxygen saturation in 2021-07-24 21:36:30 100 /min [facility] Arterial blood by [facility] Pulse oximetry [place] Body temperature 2021-07-24 17:58:00 36.83 Valerie [facility] Body height 2021-07-24 17:58:00 162.6 cm [facility] Body weight 2021-07-24 17:58:00 84.369 kg [facility] BMI 2021-07-24 17:58:00 31.93 kg/m2 [facility] Procedures Procedure Date / Time Performed Performing Clinician [facility] e CT ABDOMEN PELVIS WO 2021-09-11 11:42:00 Shadi Fan [facility] POCT TEST 2021-09-11 10:47:00 Shadi Fan [facility] LIPASE 2021-09-11 10:46:00 Shadi Fan [facility] COMP. METABOLIC PANEL 2021-09-11 10:46:00 Shadi Fan [facility] ([id number]) [facility] CBC WITH DIFF 2021-09-11 10:46:00 Shadi Fan [facility] URINALYSIS 2021-09-11 10:39:00 Shadi Fan [facility] CONSENT/REFUSAL FOR 2021-09-11 10:23:45 [facility] Name Medical Branch TREATMENT RAPID INFLUENZA A/B 2021-07-24 19:05:00 Severiano Dumont [facility] Medical Branch COVID-19 (ID NOW RAPID 2021-07-24 19:05:00 Severiano Dumont [facility] TESTING) Medical Branch NOTICE OF PRIVACY 2021-07-24 17:52:25 Doctor Unassigned, No Univ [facility] PRACTICES Name Medical Branch History of Knee [facility] Plan of Care Planned Activity Planned Date Details Comments Source Future Scheduled 2022-03-19 HE[facility]ITIS B [facility] 11:12:44 VACCINES (1 of 3 - 3-dose series) [code = HEPATITIS B VACCINES (1 of 3 - 3-dose series)] Future Scheduled 2022-03-19 COVID-19 VACCINE [facility] Test 11:12:44 (#1) [code = COVID-19 VACCINE (#1)] Future Scheduled 2022-03-19 Hepatitis C [facility] Test 11:12:44 screening (procedure) [code = 885430995] Future Scheduled 2022-03-19 [facility]ening for [facility] Test 11:12:44 malignant neoplasm of cervix (procedure) [code = 270478962] Future Scheduled 2022-03-19 BREAST CANCER [facility] Test 11:12:44 SCREENING [code = BREAST CANCER SCREENING] Future Scheduled 2022-03-19 INFLUENZA VACCINE [facility] Test 11:12:44 [code = INFLUENZA VACCINE] Future Scheduled 2022-01-10 HE[facility]ITIS B [facility] Test 21:25:22 VACCINES (1 of 3 - 3-dose series) [code = HEPATITIS B VACCINES (1 of 3 - 3-dose series)] Future Scheduled 2022-01-10 COVID-19 VACCINE [facility] Test 21:25:22 (#1) [code = COVID-19 VACCINE (#1)] Future Scheduled 2022-01-10 [facility] Test 21:25:22 screening (procedure) [code = 891943105] Future Scheduled 2022-01-10 [facility] for [facility] Test 21:25:22 malignant neoplasm of cervix (procedure) [code = 825205194] Future Scheduled 2022-01-10 BREAST CANCER [facility] Test 21:25:22 SCREENING [code = BREAST CANCER SCREENING] Future Scheduled 2022-01-10 INFLUENZA VACCINE [facility] Test 21:25:22 [code = INFLUENZA VACCINE] Encounters Start End Encounter Admission Attending Care Care Encounter Source Date/Time Date/Time Type Type Clinicians Facility Department ID 2022-03-26 Outpatient [id number] Memoria 07:31:24 [id number] Sparkill [id number] 2022-02-11 Outpatient [facility] [id number] [place] 13:02:07 [id number] [facility] 2022-01-21 Outpatient [facility] [id number] [place] 11:34:04 [id number] [facility] 2022-01-18 Outpatient [facility] [id number] [place] 06:49:20 [id number] [facility] 2022-01-09 Outpatient [facility] [id number] [place] 10:59:48 [id number] [facility] 2022-01-22 2022-01-22 Outpatient [facility] [id number] [place] 00:00:00 11:29:30 [facility] 2022-01-22 2022-01-22 Office MESSI Stevenson [facility] [id number] [place] 10:00:00 11:29:16 Visit Steven MARTINS [id number] Health [facility] [id number] MEDICAL [id number] [place] 7 2021-09-11 2021-09-11 Emergency X [facility] ERT [id number] Univers 05:27:00 07:23:00 SHADI funez [facility] 2021-09-11 2021-09-11 [facility] [id number] Univers 05:27:00 07:23:00 [id number] [id number] [place] [address] Branch 2021-07-24 2021-07-24 Emergency [facility] [id number] Univers 13:01:00 16:38:00 Severiano PEARCE [id number] i Audra [id number] [facility] [id number] [place] [address] Branch 2021-07-24 2021-07-24 Emergency X [facility] ERT [id number] Univers 13:01:00 16:38:00 SEVERIANO funez [facility] 2020-10-05 2020-10-05 [facility] [id number] [place] 00:00:00 00:00:00 DARIN [address] 2020-09-15 2020-09-15 Outpatient GC_TNC_Lovi PRIV PRIV [id number] [facility] 04:37:00 04:37:00 tt_S [id number] Medica l 2020-09-14 2020-09-14 Outpatient GC_TNC_Lovi PRIV PRIV [id number] [facility] 04:06:00 04:06:00 tt_S [id number] Medica l 2020-09-13 2020-09-13 Outpatient GC_TNC_Lovi PRIV PRIV [id number] [facility] 04:18:00 04:18:00 tt_S [id number] Medica l 2018-08-12 2018-08-12 AppointMESSI Tolbert UTP [id number] [place] 13:45:00 13:45:00 t; ENRICO RAYMOND [facility] MATTHEW, M.D. Surgery - ans [place] Oc Trace 1 2018-06-17 2018-06-17 AppointMESSI Tolbert UTP [id number] [place] 13:30:00 13:30:00 t; ENRICO RAYMOND [facility]opedic [facility]ys[facility] MATTHEW, M.D. Surgery - ans [place] Oc Trace 1 2018-05-26 2018-05-26 MESSI Vasquez UTP [id number] [place] 13:00:00 13:00:00 t; HERVE VIZCARRA Orthopedic [facility] MAL, Surgery - ans HERVE VIZCARRA Oc Trace 1 2018-04-22 2018-04-22 Appointmen SEGUNDO MESSI UTP [id number] [place] 13:30:00 13:30:00 t; ENRICO RAYMOND, Orthopedic P agatha WESTON M.D. Surgery - [facility] Nazario Oc Trace 1 2018-04-08 2018-04-08 Appointmen SEGUNDO MESSI UTP [id number] [place] 07:30:00 07:30:00 t; ENRICO RAYMOND, Orthopedic P agatha WESTON M.D. Surgery - [facility] Nazario Oc Trace 1 2018-02-19 2018-02-19 Appointmen SEGUNDO MESSI UTP [id number] [place] 15:30:00 15:30:00 t; ENRICO RAYMOND, Phys Nazario Ellsworth M.D. Results Test Description Test Time Test Comments Results Result Comments Source Complete Metabolic Panel 2021-09-11 11:30:22 Test Item Value Reference Range Interpretation Comme nts NA (test code = 8573770552) 142 mmol/L 135-145 K (test code = 6171145732) 3.6 mmol/L 3.5-5.0 CL (test code = 4975191177) 112 mmol/L 98-108 H CO2 TOTAL (test code = 3613433431) 23 mmol/L 23-31 AGAP (test code = 9473584491) 2-16 BUN (test code = 9379943236) 9 mg/dL 7-23 GLUCOSE (test code = 1961426902) 74 mg/dL 70-110 CREATININE (test code = 0.59 mg/dL 0.50-1.04 2449271094) TOTAL BILI (test code = 0.3 mg/dL 0.1-1.7 6005916035) CALCIUM (test code = 7910988226) 7.7 mg/dL 8.6-10.6 L T PROTEIN (test code = 3749226845) 5.5 g/dL 6.3-8.2 L ALBUMIN (test code = 5650924536) 3.4 g/dL 3.5-5.0 L ALK PHOS (test code = 6044587421) 41 U/L 34-122 ALTv (test code = 1742-6) 15 U/L 5-35 AST(SGOT) (test code = 0712634826) 22 U/L 13-40 eGFR (test code = 4720904960) mL/min/1.73m2 AGGIE (test code = AGGIE) Association of Glomerular Filtration Rate (GFR) and Staging of Kidney Disease* + +-------- + ------+| GFR (mL/min/1.73 m2) ?| With Kidney Damage ?| ?Without Kidney Damage+ +-- + +| ?>90 ?| ?Stage one ?| ? Normal ?+ +------- + -------+| ?60-89 ?| ?Stage two ?| ? Decreased GFR ? + +-------- + ------+| ?30-59 ?| ?Stage three ?| ? Stage three ? + +-------- + ------+| ?15-29 ?| ?Stage four ? | ? Stage four ?+ +------- + -------+| ?<15 (or dialysis) ? ?| ?Stage five ? | ? Stage five ?+ +------- + -------+ *Each stage assumes the associated GFR level has been in effect for at least three months. ?Stages 1 to 5, with or without kidney disease, indicate chronic kidney disease. Notes: Determination of stages one and two (with eGFR >59mL/min/1.73 m2) requires estimation of kidney damage for at least three months as defined by structural or functional abnormalities of the kidney, manifested by either:Pathological abnormalities or Markers of kidney damage (including abnormalities in the composition of the blood or urine or abnormalities in imaging tests). Lab Interpretation (test code = Abnormal 77438-3) [facility], [id number] 11:29:42 Test Item Value Reference Range Interpretation Comments LIPASE (test code = 4220460575) 125 U/L 0-220 Lab Interpretation (test code = Normal 75031-3) [facility] with [id number] 11:11:42 Test Item Value Reference Range Interpretation Comments WBC (test code = See_Comment [Automated message] 6690-2) The system [employer] generated this result transmitted ref erence range: 4.30 - 1 1.10 10*3/?L. The re ference range was not u sed to interpret this result as normal/abnor mal. RBC (test code = See_Comment [Automated message] 789-8) The system [employer] generated this result transmitted ref erence range: 3.93 - 5 .25 10*6/?L. The re ference range was not u sed to interpret this result as normal/abnor mal. HGB (test code = 12.9 g/dL 11.6-15.0 718-7) HCT (test code = 37.4 % 35.7-45.2 4544-3) MCV (test code = 85.2 fL 80.6-95.5 787-2) MCH (test code = 29.4 pg 25.9-32.8 785-6) MCHC (test code = 34.5 g/dL 31.6-35.1 786-4) RDW-SD (test code 41.6 fL 39.0-49.9 = 66222-9) RDW-CV (test code 13.3 % 12.0-15.5 = 788-0) PLT (test code = See_Comment [Automated message] 777-3) The system [employer] generated this result transmitted ref erence range: 166 - 35 8 10*3/?L. The re ference range was not u sed to interpret this result as normal/abnor mal. MPV (test code = 9.8 fL 9.5-12.9 59526-4) NRBC/100 WBC (test See_Comment [Automat ed message] code = 4665667781) The syste [employer] which generated this result transmitted ref erence range: 0.0 - 10 .0 /100 WBCs. The refer ence range was not u sed to interpret this result as normal/abnor mal. NRBC x10^3 (test <0.01 See_Comment [Automated message] code = 7807595478) The syste m which generated this result transmitted ref erence range: 10*3/?L. The reference range was not used to interpr et this result as normal/abnormal . GRAN MAT (NEUT) % 62.2 % (test code = 770-8) IMM GRAN % (test 0.30 % code = 0757996955) LYMPH % (test code 27.0 % = 736-9) MONO % (test code 8.0 % = 5905-5) EOS % (test code = 1.9 % 713-8) BASO % (test code 0.6 % = 706-2) GRAN MAT 4.26 10*3/uL 1.88-7.09 x10^3(ANC) (test code = 5756337175) IMM GRAN x10^3 <0.03 0.00-0.06 (test code = 6135343762) LYMPH x10^3 (test 1.85 10*3/uL 1.32-3.29 code = 731-0) MONO x10^3 (test 0.55 10*3/uL 0.33-0.92 code = 742-7) EOS x10^3 (test 0.13 10*3/uL 0.03-0.39 code = 711-2) BASO x10^3 (test 0.04 10*3/uL 0.01-0.07 code = 704-7) [facility] [id number] 10:47:00 Test Item Value Reference Range Interpretation Comments POCT PREG (test code = 1605) - On board controls acceptable with yes C Line (test code = 3574) POCT PREG LOT # (test code = 3575) [id number] POCT PREG TEST DATE (test 10/09/2022 code = 3576) Lab Interpretation (test code = Normal 25511-3) [facility] CERVICAL [id number] 10:00:47 [facility] : 1980 Sex: FCLINICAL SANJUANA CATION: M48.02 Spinal stenosis, cervical region right arm numbness and weaknessMODALITY: [employer] 3T MRITECHNIQUE: Multiplanar SE and FSE evaluation of the cervical region was performed without contrast enhancement. Multiplanar T1 sequences were then performed following intravenous administration of20 ml gadolinium contrast.IMPRESSION:1. Since previous exam there has been interbody fusion with placement of fixation hardware anteriorly from C5-C7. There is a kyphotic deformity over C5, C6 and C7 levels. Status of fusions cannot be determined.2. At C4-5 there is a 3 mm posterocentral disc protrusion compressing and flattening cord against posterior elements with moderate canal stenosis. No cord gliosis or edema.3. Posterior spondylitic ridges at C5-6 and C6-7 levels encroach upon and probably compress cord with canal stenosis as described below. No definite cord gliosis or edema. There is moderate right foraminal stenosis at C5-6 and mild to moderate right foraminal stenosis at C6-7.4. Remainder described belowFINDINGS:COMPARISON: 12/16/2018No tonsillar ectopia or foramen magnum mass and cervical cord is unremarkable without intradural extramedullary abnormality.Since previous exam there hasbeen interbody fusion with anterior metallic fixation hardware placement at C5-6 and C6-7 levels. Status of fusions are indeterminate.Mild to moderate disc degeneration at C4-5 with reversal of cervical lordosis over C4, C5 and C6.No definite vertebral body collapse or marrow infiltrative process however exam is limited secondary to field distortion artifact. No paraspinal soft tissue massAtlanto-axial articulation unremarkableFINDINGS AT SPECIFIC LEVELS:C2-C3: Unremarkable C3-C4: 2 mm posterocentral disc bulge/protrusion mildly encroaching upon ventral cord. Could not exclude mild cord compression. Mild central canal stenosis. No foraminal stenosis.C4-C5: Three - 4 mm posterocentral disc protrusion with annular tear compressing and flattening cord against posterior elements. There is moderate canal stenosis. No definite cord gliosis or edema. Mild bilateral foraminal narrowing.C5-C6: 4 mm posterior leftward lateralizing spondylitic ridge compresses cord against posterior elements with moderatecanal stenosis. No definite cord gliosis or edema. There is moderate bilateral foraminal narrowing greater to the left.C6-C7: 3 mm posterior spondylitic ridge encroaches on ventral cord. Could not exclude mild cord compression. No definite cord gliosis or edema. Mild to moderate central canal stenosis. Moderate to marked left and mild to moderate right foraminal narrowingC7-T1: Facetal arthrosis withbilateral foraminal narrowing."
[2022-03-26] MEDS ORDERED: KETOROLAC 30 MG/ML INJ ONE (08:05)
[2022-03-26] MEDS ORDERED: ONDANSETRON 4 MG/2 ML VIAL ONE (08:06)
[2022-03-26 08:13] LABS: Absolute Lymphocytes (CBC) 1.2 K/uL (0.7-4.9); Hematocrit 38.3 % (36.0-45.0); Lymphocytes % 9.9 % (15.3-44.8); MCV 86.2 fL (80-100); MPV 7.8 fL (7.6-11.3); RBC Red Blood Cell Count 4.44 M/uL (3.86-4.86)
[2022-03-26 08:24] LABS: Protime INR 1.02
[2022-03-26 08:31] LABS: Albumin 3.7 g/dL (3.4-5.0); Bilirubin Direct 0.2 mg/dL (0-0.2); Bilirubin Total 0.6 mg/dL (0.2-1.0); Magnesium 2.1 mg/dL (1.8-2.4); Potassium 3.4 mmol/L (3.5-5.1); Troponin High Sensitivity 3.5 pg/mL (<58.9)
[2022-03-26 09:12] LABS: SARS-COV-2 RT PCR NEGATIVE (NEGATIVE)
--- NOTE | 2022-03-26 09:15 | RAD REPORT ---
EXAM DESCRIPTION: RAD - Chest Single View - 03/26/2022 9:08 am CLINICAL HISTORY: Chest pain Chest pain. COMPARISON: CHEST SINGLE VIEW dated 10/07/2013; CHEST SINGLE VIEW dated 11/10/2012 FINDINGS: Portable technique limits examination quality. Moderate patchy opacities in both lungs, greater on the right, likely representing infection/ pneumon ia. The heart is normal in size. Moderate levoscoliosis upper thoracic spine.
[2022-03-26] MEDS ORDERED: NA CHLORIDE 0.9% 500 ML ONE (09:21)
[2022-03-26] MEDS ORDERED: POTASSIUM 25 MEQ EFFERV TAB ONE (09:21)
[2022-03-26 10:11] LABS: Urine Blood 2+ (Negative); Urine Glucose Negative (Negative); Urine Protein Negative (Negative)
[2022-03-26 10:25] LABS: Urine Mucus Slight /HPF (None Seen)
--- NOTE | 2022-03-26 10:38 | RAD REPORT ---
EXAM DESCRIPTION: CT - Chest For Pe Angio - 03/26/2022 10:23 am CLINICAL HISTORY: Chest pain. chest pain, r/o pulmonary embolism COMPARISON: CTANGIO CHEST FOR PE dated 11/10/2012 TECHNIQUE: CT angiogram of the pulmonary arteries was performed with MIP. All CT scans are performed using dose optimization technique as appropriate and may include automated exposure control or mA/KV adjustment according to patient size. FINDINGS: No evidence of pulmonary thromboembolism. No acute aortic finding demonstrated. Patchy moderately severe bilateral pulmonary opacities are present greatest in the lung bases most co mpatible with underlying pulmonary infection. No significant pericardial or pleural fluid. No concerning bony finding. IMPRESSION: No evidence of pulmonary thromboembolism. Moderately severe bilateral patchy pulmonary opacities, greatest in the lung bases likely indicate un derlying pulmonary infection.
[2022-03-26] MEDS ORDERED: NA CHLORIDE 0.9% 1,000 ML ONE (10:47)
[2022-03-26] MEDS ORDERED: OSELTAMIVIR 75 MG CAP ONE ×2 (11:26→20:43)
[2022-03-26] MEDS ORDERED: ALBUTEROL 2.5 MG/3 ML NEB SOL ONE ×3 (11:27→20:55)
[2022-03-26] MEDS ORDERED: IPRATROPIUM BROM 0.5MG/2.5ML ONE ×3 (11:27→20:55)
[2022-03-26] MEDS ORDERED: CEFTRIAXONE 1000 MG/VIAL ONE (11:27)
--- NOTE | 2022-03-26 11:33 | ER ---
Nurse's Notes [facility] Name: Ema Maurer Age: 41 yrs Sex: Female : 1980 Arrival Date: 03/26/2022 Time: 07:32 Bed 23 Private MD: Diagnosis: Pneumonia due to other specified infectious organisms-Bilateral, Moderate to Severe;Sepsis, unspecified organism Presentation: 03/26 07:39 Chief complaint: Patient states: Body aches and mild cough started ; dx with jl7 flu, started on Augmentin 875 on for ear infection. Shortness of breath started last night. Coronavirus screen: Vaccine status: Patient reports being unvaccinated. Ebola Screen: No symptoms or risks identified at this time. 07:39 Method Of Arrival: Ambulatory jl7 07:39 Initial Sepsis Screen: Does the patient meet any 2 criteria? RR > 20 per min. HR > 90 jl7 bpm. Yes Does the patient have a suspected source of infection? Yes: Productive cough/pneumonia If YES to both, name of provider notified: Kevin MEEK Risk Assessment: Do you want to hurt yourself or someone else? Patient reports no desire to harm self or others. Onset of symptoms was March 21, 2022. 07:39 Acuity: APRIL 3 jl7 Triage Assessment: 07:39 General: Appears in no apparent distress. uncomfortable, Behavior is calm, cooperative, jl7 appropriate for age. Pain: Denies pain. Cardiovascular: Patient's skin is warm and dry. Respiratory: Reports shortness of breath Airway is patent Respiratory effort is even, labored, Respiratory pattern is symmetrical, tachypnea Onset: The symptoms/episode began/occurred gradually, the patient has moderate shortness of breath. 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 Historical: - Allergies: 07:44 No Known Allergies; jl7 - Home Meds: 07:44 levothyroxine 175 mcg oral cap [Active]; losartan 100 mg Oral tab 1 tab once daily jl7 [Active]; Plaquenil 200 mg Oral tab 2 tabs once daily [Active]; pravastatin 40 mg Oral tab 1 tab once daily [Active]; amlodipine 10 mg tab [Active]; duloxetine 60 mg oral CDRS [Active]; tizanidine 4 mg oral cap [Active]; pregabalin 150 mg Oral cap [Active]; 14:09 folic acid 1 mg Oral tab 1 tab once daily [Active]; metoprolol tartrate 100 mg Oral tab eh3 [Active]; Methotrexate (Anti-Rheumatic) Oral 20 mg 1 x weeekly [Active]; - PMHx: 07:44 bile duct obstruction; hashimotos thyroiditis; High Cholesterol; Hypertension; Kidney jl7 stones; Rheumatoid Arthritis; Lupus erythematosus; Raynaud's Syndrome; - Immunization history:: Client reports having NOT received the Covid vaccine. - Social history:: Smoking status: Patient denies any tobacco usage or history of. Screenin:02 Abuse screen: Denies threats or abuse. Nutritional screening: No deficits noted. ap3 Tuberculosis screening: No symptoms or risk factors identified. Fall Risk None identified. Assessment: 08:03 Cardiovascular: Rhythm is sinus tachycardia. ap3 09:28 Reassessment: Patient and/or family updated on plan of care and expected duration. Pain ap3 level reassessed. Patient is alert, oriented x 3, equal unlabored respirations, skin warm/dry/pink. General: Appears ill, Behavior is calm, cooperative. Neuro: Level of Consciousness is awake, alert, obeys commands, Oriented to person, place, time, situation, Gait is steady. Respiratory: Reports cough that is Airway is patent Respiratory effort is even, unlabored, 10:42 Reassessment: Patient and/or family updated on plan of care and expected duration. Pain ld1 level reassessed. Patient is alert, oriented x 3, equal unlabored respirations, skin warm/dry/pink. 12:03 Reassessment: Patient appears in no apparent distress at this time. Patient and/or ld1 family updated on plan of care and expected duration. Pain level reassessed. Patient is alert, oriented x 3, equal unlabored respirations, skin warm/dry/pink. 13:00 Reassessment: Patient and/or family updated on plan of care and expected duration. Pain eh3 level reassessed. Patient is alert, oriented x 3, equal unlabored respirations, skin warm/dry/pink. 14:00 Reassessment: Patient and/or family updated on plan of care and expected duration. Pain eh3 level reassessed. Patient is alert, oriented x 3, equal unlabored respirations, skin warm/dry/pink. Vital Signs: 07:39 BP 145 / 111; Pulse 110; Resp 22; Temp 99.5; Pulse Ox 98% ; Weight 90.72 kg; Height 5 7 ft. 4 in. (162.56 cm); Pain 0/10; 10:42 BP 126 / 93; Pulse 97; Resp 18; Pulse Ox 100% on R/A; ld1 12:03 BP 126 / 90; Pulse 89; Resp 18; Pulse Ox 100% on R/A; ld1 13:00 BP 121 / 76; Pulse 111; Resp 18; Pulse Ox 97% on R/A; eh3 14:00 BP 124 / 73; Pulse 108; Resp 18; Pulse Ox 99% on R/A; eh3 07:39 Body Mass Index 34.33 (90.72 kg, 162.56 cm) 7 ED Course: 07:32 Patient arrived in ED. rg4 07:32 Kevin Moe PA is PHCP. cp 07:32 Kaveh Alonso MD is Attending Physician. cp 07:39 Arm band placed on right wrist. jl7 07:44 Triage completed. jl7 07:50 Nichol Maynard, RN is Primary Nurse. ap3 08:02 No provider procedures requiring assistance completed. ap3 08:03 Patient has correct armband on for positive identification. Placed in gown. Bed in low ap3 position. Call light in reach. pest control chemical technician on. Pulse ox on. NIBP on. Door closed. Noise minimized. 08:04 Initial lab(s) drawn, by me, sent to lab. Inserted saline lock: 22 gauge in left iw antecubital area, using aseptic technique. Blood collected. 08:04 First set of blood cultures drawn by me. iw 09:09 XRAY Chest (1 view) In Process Unspecified. EDMS 10:24 CT Chest For PE Angio In Process Unspecified. EDMS 11:31 Dakotah Akhtar is Hospitalizing Provider. cp 14:09 Patient admitted, IV remains in place. eh3 19:12 Primary Nurse role handed off by Nichol Maynard, RN mw2 22:59 Sherlyn Kinney, CLARE is Primary Nurse. eh3 Administered Medications: 08:13 Drug: Zofran (Ondansetron) 4 mg Route: IVP; Site: left antecubital; ap3 09:27 Follow up: Response: No adverse reaction ap3 08:13 Drug: Ketorolac 15 mg Route: IVP; Site: left antecubital; ap3 09:27 Follow up: Response: No adverse reaction; Pain is decreased ap3 09:27 Drug: NS 0.9% 500 ml Route: IV; Rate: bolus; Site: left antecubital; ap3 13:30 Follow up: IV Status: Completed infusion; IV Intake: 500ml eh3 09:27 Drug: Potassium Effervescent Tablet 25 mEq Route: PO; ap3 14:04 Follow up: Response: No adverse reaction eh3 11:00 Drug: NS 0.9% 1000 ml Route: IV; Rate: 1000 ml; Site: left antecubital; ld1 13:00 Follow up: IV Status: Completed infusion; IV Intake: 1000ml eh3 11:30 Drug: Tamiflu (oseltamivir) 75 mg Route: PO; ld1 14:04 Follow up: Response: No adverse reaction eh3 11:30 Drug: Rocephin (cefTRIAXone) 1 grams Route: IV; Rate: calculated rate; Site: left ld1 antecubital; 11:30 Follow up: Response: No adverse reaction; IV Status: Completed infusion; IV Intake: [id number] 11:30 Follow up: Response: No adverse reaction; IV Status: Completed infusion; IV Intake: [id number] 14:03 Follow up: IV Status: Completed infusion eh3 11:30 Drug: Albuterol 2.5 mg Route: Inhalation; ld1 11:30 Drug: AtroVENT (ipratropium) Aerosol 0.5 mg Route: Inhalation; ld1 12:02 Drug: Zithromax (azithromycin) 500 mg Route: IVPB; Infused Over: 1 hrs; Site: left ld1 antecubital; 13:05 Follow up: Response: No adverse reaction; IV Status: Completed infusion; IV Intake: eh3 250ml Medication: 08:03 VIS not applicable for this client. ap3 Intake: 11:30 IV: 10ml; Total: 10ml. eh3 11:30 IV: 10ml; Total: 20ml. eh3 13:00 IV: 1000ml; Total: 1020ml. eh3 13:05 IV: 250ml; Total: 1270ml. eh3 13:30 IV: 500ml; Total: 1770ml. eh3 Outcome: 11:33 Decision to Hospitalize by Provider. cp 14:09 Admitted to ER Hold. Please see [facility] for further documentation. 3 14:09 Condition: stable 14:09 Instructed on the need for admit. 22:59 Patient left the ED. 3 Signatures: Dispatcher [employer] EDDeann Iraheta, RN RN Kevin Griffiths PA PA cp Garcia, Rubi rg4 Jose Salinas, RN RN jl7 Nichol Maynard RN RN ap3 Rebekah Parra 2 Raisa Arzate RN RN ld1 Sherlyn Kinney, RN RN eh3
--- NOTE | 2022-03-26 11:33 | EDPHYS ---
Physician Documentation [facility] Name: Ema Maurer Age: 41 yrs Sex: Female : 1980 Arrival Date: 03/26/2022 Time: 07:32 Bed 23 Private MD: ED Physician Kaveh Alonso HPI: 03/26 07:42 This 41 yrs old Female presents to ER via Unassigned with complaints of Breathing cp Difficulty. 07:42 The patient has shortness of breath at rest. Onset: The symptoms/episode began/occurred cp yesterday. The patient's shortness of breath is aggravated by light activity. Associated signs and symptoms: Pertinent positives: chest pain, productive cough, hemoptysis, vomiting. Severity of symptoms: in the emergency department the symptoms are unchanged. 07:45 Patient reports she was diagnosed with flu about 10 days ago initially but Tamiflu was cp not available at pharmacy. Was prescribed Augmentin for ear infection at that time. 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 jl7 Historical: - Allergies: 07:44 No Known Allergies; jl7 - Home Meds: 07:44 levothyroxine 175 mcg oral cap [Active]; losartan 100 mg Oral tab 1 tab once daily jl7 [Active]; Plaquenil 200 mg Oral tab 2 tabs once daily [Active]; pravastatin 40 mg Oral tab 1 tab once daily [Active]; amlodipine 10 mg tab [Active]; duloxetine 60 mg oral CDRS [Active]; tizanidine 4 mg oral cap [Active]; pregabalin 150 mg Oral cap [Active]; 14:09 folic acid 1 mg Oral tab 1 tab once daily [Active]; metoprolol tartrate 100 mg Oral tab eh3 [Active]; Methotrexate (Anti-Rheumatic) Oral 20 mg 1 x weeekly [Active]; - PMHx: 07:44 bile duct obstruction; hashimotos thyroiditis; High Cholesterol; Hypertension; Kidney jl7 stones; Rheumatoid Arthritis; Lupus erythematosus; Raynaud's Syndrome; - Immunization history:: Client reports having NOT received the Covid vaccine. - Social history:: Smoking status: Patient denies any tobacco usage or history of. ROS: 07:45 Constitutional: Negative for body aches, chills, fever, poor PO intake. cp 07:45 Eyes: Negative for injury, pain, redness, and discharge. cp 07:45 ENT: Positive for sore throat, Negative for drainage from ear(s), ear pain, difficulty swallowing, difficulty handling secretions. 07:45 Cardiovascular: Positive for chest pain, of the mid anterior chest, Negative for edema. 07:45 Respiratory: Positive for cough, hemoptysis, shortness of breath, on exertion. Negative for wheezing. 07:45 Abdomen/GI: Positive for nausea and vomiting, Negative for abdominal pain, diarrhea, constipation. 07:45 Skin: Negative for cellulitis, rash. 07:45 Neuro: Negative for altered mental status, dizziness, headache, numbness, syncope, weakness. 07:45 All other systems are negative. Exam: 07:50 Constitutional: The patient appears in no acute distress, alert, awake, cp non-diaphoretic, non-toxic, well developed, well nourished, uncomfortable. 07:50 Head/Face: Normocephalic, atraumatic. cp 07:50 Eyes: Periorbital structures: appear normal, Conjunctiva: normal, no exudate, no injection, Sclera: no appreciated abnormality, Lids and lashes: appear normal, bilaterally. 07:50 ENT: External ear(s): are unremarkable, Ear canal(s): are normal, clear, TM's: dullness, bilaterally, Nose: is normal, Mouth: Lips: moist, Oral mucosa: moist, Posterior pharynx: Airway: no evidence of obstruction, patent. 07:50 Neck: ROM/movement: is normal, is supple, without pain, no range of motions limitations, no meningismus, Lymph nodes: no appreciated lymphadenopathy. 07:50 Chest/axilla: Inspection: normal, Palpation: is normal, no crepitus, no tenderness. 07:50 Cardiovascular: Rate: tachycardic, Rhythm: regular, Edema: is not appreciated, JVD: is not appreciated. 07:50 Respiratory: the patient does not display signs of respiratory distress, Respirations: labored breathing, is not present, shallow respirations, that is mild, Breath sounds: bronchial sounds, that are mild, are heard diffusely, decreased breath sounds, are not appreciated, stridor, is not appreciated, wheezing: is not appreciated. 07:50 Abdomen/GI: Inspection: abdomen appears normal, Bowel sounds: active, all quadrants, Palpation: abdomen is soft and non-tender, in all quadrants. 07:50 Back: ROM is normal, CVA tenderness, is absent. 07:50 Skin: no rash present. 07:50 Neuro: Orientation: to person, place \\T\\ time. Mentation: is normal, Motor: moves all fours, strength is normal, Sensation: is normal. 08:05 ECG was reviewed by the Attending Physician. Vital Signs: 07:39 BP 145 / 111; Pulse 110; Resp 22; Temp 99.5; Pulse Ox 98% ; Weight 90.72 kg; Height 5 jl7 ft. 4 in. (162.56 cm); Pain 0/10; 10:42 BP 126 / 93; Pulse 97; Resp 18; Pulse Ox 100% on R/A; ld1 12:03 BP 126 / 90; Pulse 89; Resp 18; Pulse Ox 100% on R/A; ld1 13:00 BP 121 / 76; Pulse 111; Resp 18; Pulse Ox 97% on R/A; eh3 14:00 BP 124 / 73; Pulse 108; Resp 18; Pulse Ox 99% on R/A; eh3 07:39 Body Mass Index 34.33 (90.72 kg, 162.56 cm) jl7 MDM: 07:48 Patient medically screened. cp 08:00 Differential diagnosis: Bronchitis pneumonia, Sepsis influenza. cp 11:33 Data reviewed: vital signs, nurses notes, lab test result(s), EKG, radiologic studies, cp CT scan, plain films, I have discussed the patient's presentation/case with the attending Emergency Department Physician; and as a result, I will admit patient, administer antibiotics Rocephin, Zithromax, after discussion with ED physician and review of EKG that was negative for QT prolongation. Patient meets criteria for sepsis at this time but not sever sepsis due to no signs of organ dysfunction. 03/26 07:42 Order name: Basic Metabolic Panel; Complete Time: 09:07 cp 03/26 09:09 Interpretation: Normal except: K 3.4; CA 8.4. 03/26 07:42 Order name: CBC with Diff; Complete Time: 09:07 cp 03/26 09:08 Interpretation: Normal except: WBC 12.30; CINDY% 84.4; LYM% 9.9; NEUT A 10.4. cp 03/26 07:42 Order name: D-Dimer; Complete Time: 09:07 03/26 09:08 Interpretation: Abnormal: D-DIMER 1186. cp 03/26 07:42 Order name: LFT's; Complete Time: 09:07 cp 03/26 09:09 Interpretation: Normal except: AST 12. cp 03/26 07:42 Order name: Magnesium; Complete Time: 09:07 03/26 07:42 Order name: NT PRO-BNP; Complete Time: 09:07 03/26 07:42 Order name: PT-INR; Complete Time: 09:07 03/26 07:42 Order name: Troponin HS; Complete Time: 09:07 03/26 07:42 Order name: Lactate; Complete Time: 09:07 03/26 09:09 Interpretation: Abnormal: LAC 1.2. cp 03/26 07:42 Order name: Procalcitonin; Complete Time: 09:07 03/26 07:42 Order name: Blood Culture Adult (2) 03/26 07:42 Order name: COVID-19/FLU A+B (Document "Date of Onset" if Symptomatic); Complete Time: 09:41 03/26 09:12 Order name: Urine Microscopic Only; Complete Time: 10:41 03/26 10:11 Order name: Urine Dipstick-Ancillary; Complete Time: 10:20 EDDC 03/26 10:20 Interpretation: Normal except: UBLD 2+. 03/26 07:42 Order name: XRAY Chest (1 view); Complete Time: 09:41 03/26 09:12 Order name: CT Chest For PE Angio; Complete Time: 10:41 cp 03/26 10:41 Interpretation: Reviewed. rn 03/26 10:14 Order name: Urine --Ancillary (enter results); Complete Time: 10:41 bd 03/26 13:33 Order name: Phosphorus EDMS 03/26 13:33 Order name: Magnesium EDMS 03/26 18:03 Order name: Blood Culture EDDC 03/26 07:42 Order name: EKG; Complete Time: 07:42 cp 03/26 07:42 Order name: Cardiac monitoring; Complete Time: 08:15 cp 03/26 07:42 Order name: EKG - Nurse/Tech; Complete Time: 08:02 03/26 07:42 Order name: IV Saline Lock; Complete Time: 08:02 cp 03/26 07:42 Order name: Labs collected and sent; Complete Time: 08:02 03/26 07:42 Order name: O2 Per Protocol; Complete Time: 08:02 03/26 07:42 Order name: O2 Sat Monitoring; Complete Time: 08:02 03/26 09:12 Order name: Urine Dipstick-Ancillary (obtain specimen); Complete Time: 10:13 cp 03/26 09:12 Order name: Urine Test (obtain specimen); Complete Time: 10:13 cp 03/26 10:40 Order name: Vital Signs: please update; Complete Time: 10:43 rn 03/26 13:13 Order name: Diet Regular; Complete Time: 13:14 em6 EC:05 Rate is 102 beats/min. Rhythm is regular. RI interval is normal. QRS interval is cp normal. QT interval is normal. T waves are Inverted in lead aVR. Interpreted by me. Reviewed by me. Administered Medications: 08:13 Drug: Zofran (Ondansetron) 4 mg Route: IVP; Site: left antecubital; ap3 09:27 Follow up: Response: No adverse reaction ap3 08:13 Drug: Ketorolac 15 mg Route: IVP; Site: left antecubital; ap3 09:27 Follow up: Response: No adverse reaction; Pain is decreased ap3 09:27 Drug: NS 0.9% 500 ml Route: IV; Rate: bolus; Site: left antecubital; ap3 13:30 Follow up: IV Status: Completed infusion; IV Intake: 500ml eh3 09:27 Drug: Potassium Effervescent Tablet 25 mEq Route: PO; ap3 14:04 Follow up: Response: No adverse reaction eh3 11:00 Drug: NS 0.9% 1000 ml Route: IV; Rate: 1000 ml; Site: left antecubital; ld1 13:00 Follow up: IV Status: Completed infusion; IV Intake: 1000ml eh3 11:30 Drug: Tamiflu (oseltamivir) 75 mg Route: PO; ld1 14:04 Follow up: Response: No adverse reaction eh3 11:30 Drug: Rocephin (cefTRIAXone) 1 grams Route: IV; Rate: calculated rate; Site: left ld1 antecubital; 11:30 Follow up: Response: No adverse reaction; IV Status: Completed infusion; IV Intake: [id number] 11:30 Follow up: Response: No adverse reaction; IV Status: Completed infusion; IV Intake: [id number] 14:03 Follow up: IV Status: Completed infusion eh3 11:30 Drug: Albuterol 2.5 mg Route: Inhalation; ld1 11:30 Drug: AtroVENT (ipratropium) Aerosol 0.5 mg Route: Inhalation; ld1 12:02 Drug: Zithromax (azithromycin) 500 mg Route: IVPB; Infused Over: 1 hrs; Site: left ld1 antecubital; 13:05 Follow up: Response: No adverse reaction; IV Status: Completed infusion; IV Intake: eh3 250ml Disposition Summary: 03/26/22 11:33 Hospitalization Ordered Hospitalization Status: Inpatient Admission cp Provider: Dakotah Akhtar cp Location: Telemetry/[facility] (Inpatient) cp Condition: Stable cp Problem: new cp Symptoms: have improved cp Bed/Room Type: Standard cp Room Assignment: [id number](03/26/22 21:23) cg Diagnosis - Pneumonia due to other specified infectious organisms - Bilateral, Moderate to cp Severe - Sepsis, unspecified organism cp Discharge Instructions: - Discharge Summary Sheet cp - Community-Acquired Pneumonia, Adult cp Forms: - Medication Reconciliation Form cp - SBAR form cp Signatures: Dispatcher [employer] Kaveh Blake MD MD rn Page, Corey, PA PA cp Parul Bianchi RN RN cg Jose Salinas RN RN jl7 Nichol Maynard RN RN [id number] Raisa Arzate RN RN ld1 Sherlyn Kinney RN RN eh3 Corrections: (The following items were deleted from the chart) 09:10 09:08 Normal except: K 3.4. cp cp 20:48 11:33 cp cg 20:49 20:48 430 cg cg 20:49 20:49 cg cg 21:23 20:49 430 cg cg
[2022-03-26] MEDS ORDERED: NA CHLORIDE 0.9% 250 ML ONE (11:59)
[2022-03-26] MEDS ORDERED: AZITHROMYCIN 500 MG INJ IVPB ONE (11:59)
[2022-03-26] MEDS ORDERED: ACETAMINOPHEN 325 MG TABLET PO PRN (12:25)
[2022-03-26] MEDS ORDERED: LABETALOL 20 MG/4ML SYRINGE IV PRN (12:25)
[2022-03-26] MEDS ORDERED: HYDROCODONE/APAP 5/325 MG TAB PO PRN (12:25)
[2022-03-26] MEDS ORDERED: ONDANSETRON 4 MG/2 ML VIAL IV PRN (12:29)
--- NOTE | 2022-03-26 12:35 | P.HP ---
Certification for Inpatient Patient admitted to: Inpatient With expected LOS: >2 Midnights Patient will require the following post-hospital care: None Practitioner: I am a practitioner with admitting privileges, knowledge of patient current condition, hospital course, and medical plan of care. Services: Services provided to patient in accordance with Admission requirements found in Title 42 Section 412.3 of the Code of Federal Regulations Patient History Date of Service: 03/26/22 Reason for admission: SOB History of Present Illness: Patient is a 41-year-old female with a past medical history significant for hypothyroidism, obesity, rheumatoid arthritis, fibromyalgia, hyperlipidemia, hypertension, lupus, Michelle thyroiditis, Raynaud's disease who presents with complaint of shortness of breath onset yesterday. Patient reported that 5 days ago she was having generalized body pains, sore throat, nasal congestion, low- grade fever and ear pain. Patient reported that she went on an urgent care facility and was informed that she might have some flu. Patient reported improvement in symptoms and suddenly yesterday she started having shortness of breath and this morning had a one-time episode of hemoptysis. Patient reported associated signs and symptoms of nausea, vomiting and chest tightness, patient denies any other signs or symptoms. Symptoms are aggravated or relieved by nothing. Patient decided to present to the hospital due to worsening symptoms. Allergies No Known Drug Allergies Allergy (Unverified 10/12/13 09:23) Unknown Home Medications: Amitriptyline [Elavil*] 25 mg PO BEDTIME 11/11/12 Biotin 5,000 mcg PO DAILY 11/11/12 Levothyroxine [Synthroid*] 125 mcg PO [id number] 11/11/12 Max Strength Acid [employer] 150 mg PO DAILY 11/11/12 Metoprolol Tartrate [Lopressor*] 50 mg PO BID #60 tab 11/11/12 PARoxetine HCl [Paxil] 30 mg PO DAILY 11/11/12 Pravastatin [Pravachol*] 40 mg PO DAILY 11/11/12 hydroCHLOROthiazide [Hydrochlorothiazide*] 12.5 mg PO DAILY 11/11/12 - Past Medical/Surgical History -: Hypothyroid -: Htn -: hyperlipidemia -: gallbladder removed - Social History Smoking Status: Never smoker Alcohol use: Yes CD- Drugs: No Caffeine use: Yes Place of Residence: Home Review of Systems General: Fever, Other (Generalized body pains) Eyes: Unremarkable ENT: Ear Pain, Nose Congestion, Throat Pain Respiratory: Cough, Shortness of Breath, Hemoptysis, SOB with Excertion, Other (Chest tightness) Cardiovascular: Unremarkable Gastrointestinal: Nausea, Vomiting Genitourinary: Unremarkable Musculoskeletal: Unremarkable Integumentary: Unremarkable Lymphatics: Unremarkable Physical Examination - Physical Exam General: Alert, Oriented x3, Mild distress HEENT: Atraumatic, Normocephalic, Mucous membr. moist/pink Neck: Supple, 2+ carotid pulse no bruit, JVD not distended Respiratory: Normal air movement Cardiovascular: No edema, Normal pulses, Regular rate/rhythm, Normal S1 S2 Capillary refill: <2 Seconds Gastrointestinal: Normal bowel sounds, Non-distended Musculoskeletal: No clubbing, No swelling, No contractures, No erythema, No tenderness Integumentary: No rashes, No breakdown, No significant lesion, No tenderness/swelling Neurological: Normal gait, Normal speech, Normal strength at 5/5 x4 extr, Normal tone, Normal affect Lymphatics: No axilla or inguinal lymphadenopathy - Studies Laboratory Data (last 24 hrs) 03/26/22 07:58: PT 11.2, INR 1.02 03/26/22 07:58: WBC 12.30 H, Hgb 13.3, Hct 38.3, Plt Count 266 03/26/22 07:58: Sodium 139, Potassium 3.4 L, BUN 9, Creatinine 0.76, Glucose 94, Magnesium 2.1, Total Bilirubin 0.6, AST 12 L, ALT 22, Alkaline Phosphatase 74 Assessment and Plan - Plan --Pneumonia. Blood cultures pending. Continue antibiotics, neb treatment with albuterol\Atrovent. Continue O2 therapy as needed --Influenza A. Continue Tamiflu. --Leukocytosis\sepsis POA. Blood cultures pending. Continue antibiotics. --Rheumatoid pleuritic\fibromyalgia. Continue home medications --Hemoptysis. Likely secondary to pneumonia. Patient reported a one-time episode of hemoptysis. Continue supportive care --History of Raynaud's disease\[place] thyroiditis. Continue supportive care. --Hyperlipidemia. Continue statin. --Hypokalemia. Replete as needed. --Hypertension. Poorly controlled. Continue home medication labetalol as needed. -- Hypothyroidism. Continue Synthroid. --Elevated D-dimer. CTA PE protocol does not indicate any pulmonary embolism. Continue supportive care. -- Class I obesity. Likely secondary to excess calories intake. Patient counseled on weight reduction, diet and exercise therapy. --DVT prophylaxis with Lovenox subQ. Discharge Plan: Home Plan to discharge in: Greater than 2 days - Advance Directives Does patient have a Living Will: No Does patient have a Durable POA for Healthcare: No - Code Status/Comfort Care Code Status Assessed: Yes Code Status: Full Code Physician Review: Patient Assessed, Agree with Above Assessment and Plan Critical Care: No
[2022-03-26] MEDS: OSELTAMIVIR 75 MG CAP PO SCH ×2 (13:00→21:00)
[2022-03-26] MEDS: CEFTRIAXONE 1,000 MG in NA CHLORIDE 0.9% 50 ML IVPB SCH (13:00)
[2022-03-26] MEDS: AZITHROMYCIN IV 500 MG in NA CHLORIDE 0.9% 250 ML IVPB SCH (13:00)
[2022-03-26 13:33] LABS: Phosphorus 2.1 mg/dL (2.5-4.9)
[2022-03-26 14:15] VITALS: BMI 34.3
[2022-03-26] MEDS: IPRATROPIUM BROM 0.5MG/2.5ML NEB SCH ×2 (14:45→20:55)
[2022-03-26] MEDS: ALBUTEROL 2.5 MG/3 ML NEB SOL NEB SCH ×2 (14:45→20:55)
[2022-03-26] MEDS: ASPIRIN EC 81 MG TAB PO SCH (15:00)
[2022-03-26] MEDS ORDERED: ASPIRIN EC 81 MG TAB PO ONE (19:43)
[2022-03-26] MEDS ORDERED: METOPROLOL TAR 50 MG TAB ONE (20:43)
[2022-03-26] MEDS ORDERED: ATORVASTATIN 20 MG TAB ONE (20:43)
[2022-03-26] MEDS: AMITRIPTYLINE 25 MG TAB PO SCH (21:00)
[2022-03-26] MEDS ORDERED: ATORVASTATIN 10 MG TAB PO SCH (21:00)
[2022-03-26] MEDS: METOPROLOL TAR 50 MG TAB PO SCH (21:00)
[2022-03-26] MEDS ORDERED: SEVELAMER CARBONATE 800 MG TABLET PO ONE (21:38)
[2022-03-26] MEDS ORDERED: AMITRIPTYLINE 25 MG TAB ONE (21:38)
[2022-03-27] MEDS: IPRATROPIUM BROM 0.5MG/2.5ML NEB SCH ×4 (00:55→20:50)
[2022-03-27] MEDS: ALBUTEROL 2.5 MG/3 ML NEB SOL NEB SCH ×4 (00:55→20:50)
[2022-03-27 03:59] LABS: Albumin 3.1 g/dL (3.4-5.0); Bilirubin Total 0.3 mg/dL (0.2-1.0); Potassium 3.7 mmol/L (3.5-5.1); Protein, Total 6.4 g/dL (6.4-8.2)
[2022-03-27 05:01] LABS: Phosphorus 2.7 mg/dL (2.5-4.9)
[2022-03-27] MEDS ORDERED: LEVOTHYROXINE SOD 0.125 MG TAB PO SCH (06:00)
[2022-03-27] MEDS ORDERED: INFLUENZA VACCINE (for 6+ mo) 0.5 ML DOSE IMVAC ONE (08:00)
[2022-03-27] MEDS: HOME MED 1 EA UNK (Biotin 5,000 MCG) PO SCH (09:00)
[2022-03-27] MEDS ORDERED: POTASSIUM CL SA 10 MEQ TAB PO ONE (09:00)
[2022-03-27] MEDS: METOPROLOL TAR 50 MG TAB PO SCH ×3 (09:00→19:28)
[2022-03-27] MEDS: [UNRECOGNIZED DRUG - OTHER] PO SCH (09:00)
[2022-03-27] MEDS: PARoxetine HCL 10 MG TAB PO SCH ×2 (09:00→09:20)
[2022-03-27] MEDS: ASPIRIN EC 81 MG TAB PO SCH (09:20)
[2022-03-27] MEDS: hydroCHLOROthiazide 12.5 MG CAP PO SCH (09:20)
[2022-03-27] MEDS: OSELTAMIVIR 75 MG CAP PO SCH ×2 (09:20→21:43)
[2022-03-27] MEDS: ENOXAPARIN 40 MG/0.4 ML SQ SCH (09:22)
[2022-03-27] MEDS: CEFTRIAXONE 1,000 MG in NA CHLORIDE 0.9% 50 ML IVPB SCH (09:22)
[2022-03-27] MEDS: AZITHROMYCIN IV 500 MG in NA CHLORIDE 0.9% 250 ML IVPB SCH (09:23)
--- NOTE | 2022-03-27 14:45 | P.PN ---
Subjective Date of Service: 03/27/22 Chief Complaint: SOB Patient states she feels better than yesterday. She has been afebrile. She reports cough with hemoptysis prior to admission. She has been tolerating room air. Physical Examination - Vital Signs Temperature: 97.5 F Blood Pressure: 149/82 Pulse: 92 Respirations: 12 Pulse Ox (%): 95 Assessment And Plan - Current Problems (Diagnosis) (1) Influenzal pneumonia Current Visit: Yes Status: Acute (2) Hemoptysis Current Visit: Yes Status: Acute (3) Rheumatoid arthritis Current Visit: Yes Status: Acute (4) Essential hypertension Current Visit: Yes Status: Acute - Plan Physical Exam General: Alert, Oriented x3, NAD Neck: Supple, JVD not distended Respiratory: Mild bibasilar crackles. Adequate breath sounds bilaterally. Cardiovascular: No edema, Normal pulses, Regular rate/rhythm, Normal S1 S2 Gastrointestinal: Normal bowel sounds, Non-distended, no tenderness Musculoskeletal: No swelling, no erythema. Integumentary: No rashes, No breakdown. Neurological: Normal speech, Normal strength at 5/5 x4 extr, Normal tone, Normal affect Lymphatics: No axilla or inguinal lymphadenopathy. Plan: I suspect influenza pneumonia given the diffuse infiltrate. Secondary bacterial pneumonia not ruled out. Continue Tamiflu. Continue antibiotic coverage for community-acquired pneumonia-Rocephin and Zithromax. Supportive measures. Supplemental oxygen as needed. Optimize electrolytes. Hold antihypertensives for now until persistently hypertensive. Continue home medications for rheumatoid arthritis. Activity as tolerated.
[2022-03-27] MEDS: GUAIFENESIN/DM 5 ML UCUP PO PRN ×2 (15:58→21:47)
--- NOTE | 2022-03-27 19:04 | EKG ---
Test Date: 2022-03-26 Test Time: 07:58:29 Learning And Development Consultant: ALP MEASUREMENT RESULTS: Intervals: Rate: 102 WI: 162 QRSD: 78 QT: 348 QTc: 453 [place]: P: 57 WI: 162 QRS: 16 T: 48 INTERPRETIVE STATEMENTS: Sinus tachycardia Otherwise normal ECG Compared to ECG 10/07/2013 15:03:44 Sinus rhythm no longer present Electronically Signed On 03-27-22 19:00:44 DIRECTOR OF MUSIC THERAPY by Eduardo Loja
[2022-03-27] MEDS ORDERED: ATORVASTATIN 10 MG TAB PO SCH (21:00)
[2022-03-27] MEDS: PREGABALIN 150 MG CAP PO SCH (21:43)
[2022-03-27] MEDS: AMITRIPTYLINE 25 MG TAB PO SCH (21:44)
[2022-03-28] MEDS: ALBUTEROL 2.5 MG/3 ML NEB SOL NEB SCH ×3 (02:25→14:10)
[2022-03-28] MEDS: IPRATROPIUM BROM 0.5MG/2.5ML NEB SCH ×3 (02:25→14:10)
[2022-03-28 03:42] LABS: Absolute Lymphocytes (CBC) 1.6 K/uL (0.7-4.9); Hematocrit 35.7 % (36.0-45.0); Lymphocytes % 16.8 % (15.3-44.8); MCV 86.2 fL (80-100); MPV 7.8 fL (7.6-11.3); RBC Red Blood Cell Count 4.15 M/uL (3.86-4.86)
[2022-03-28 03:49] LABS: Potassium 3.5 mmol/L (3.5-5.1)
[2022-03-28] MEDS ORDERED: LEVOTHYROXINE SOD 0.1 MG TAB PO SCH (06:30)
[2022-03-28] MEDS ORDERED: LEVOTHYROXINE SOD 0.075 MG TAB PO SCH (06:30)
--- NOTE | 2022-03-28 08:49 | P.DS ---
Admission Date: 03/26/22 Discharge Date: 03/28/22 Disposition: ROUTINE DISCHARGE Discharge Condition: FAIR Reason for Admission: SOB - Problems (1) Influenzal pneumonia Current Visit: Yes Status: Acute (2) Hemoptysis Current Visit: Yes Status: Acute (3) Rheumatoid arthritis Current Visit: Yes Status: Acute (4) Essential hypertension Current Visit: Yes Status: Acute Brief History of Present Illness: Patient is a 41-year-old female with a past medical history significant for hypothyroidism, obesity, rheumatoid arthritis, fibromyalgia, hyperlipidemia, hypertension, lupus, Michelle thyroiditis, Raynaud's disease who presented with complaint of shortness of breath. Patient reported generalized body pains, sore throat, nasal congestion, low-grade fever and ear pain. Patient reported that she went on an urgent care facility and was informed that she might have some flu. Patient reported improvement in symptoms and then suddenly she started having shortness of breath. She had 1 episode of hemoptysis. Patient reported associated signs and symptoms of nausea, vomiting and chest tightness. Chest x- ray demonstrated bilateral diffuse opacities. Patient admitted for further management. Hospital Course: Patient admitted to the medical floor, treated with Tamiflu and antibiotics- Rocephin and Zithromax for possible secondary bacterial pneumonia. Patient clinical condition was stable. She did not require oxygen. She was ambulatory without hypoxia. She tolerated diet and had good oral intake. No fever for 48 hours. Patient is deemed stable for discharge. She is prescribed antibiotics to continue treatment for possible secondary bacterial pneumonia. She will also continue Tamiflu treatment. Also prescribed steroid for the infiltrate given history of rheumatoid arthritis. Vital Signs/Physical Exam: Temp Pulse Resp BP Pulse Ox 97.0 F 83 14 155/81 H 98 03/28/22 08:00 03/28/22 08:00 03/28/22 08:00 03/28/22 08:00 03/28/22 08:00 General: Alert, In no apparent distress, Oriented x3 HEENT: Mucous membr. moist/pink Neck: JVD not distended Respiratory: Normal air movement, Crackles/rales (Mild bibasilar crackles) Cardiovascular: No edema, Regular rate/rhythm, Normal S1 S2 Gastrointestinal: Normal bowel sounds, Soft and benign, Non-distended Musculoskeletal: No swelling, No tenderness Integumentary: No rashes, No cyanosis Neurological: Normal strength at 5/5 x4 extr, Cranial nerves 3-12 intact Lymphatics: No axilla or inguinal lymphadenopathy Laboratory Data at Discharge: WBC 9.50 K/uL (4.3-10.9) 03/28/22 03:17 Hgb 12.2 g/dL (12.0-15.0) 03/28/22 03:17 Hct 35.7 % (36.0-45.0) L 03/28/22 03:17 Plt Count 252 K/uL (152-406) 03/28/22 03:17 PT 11.2 SECONDS (9.5-12.5) 03/26/22 07:58 INR 1.02 03/26/22 07:58 Sodium 140 mmol/L (136-145) 03/28/22 03:17 Potassium 3.5 mmol/L (3.5-5.1) 03/28/22 03:17 BUN 9 mg/dL (7-18) 03/28/22 03:17 Creatinine 0.68 mg/dL (0.55-1.3) 03/28/22 03:17 Glucose 98 mg/dL (74-106) 03/28/22 03:17 Phosphorus 2.7 mg/dL (2.5-4.9) 03/27/22 02:47 Magnesium 2.0 mg/dL (1.8-2.4) 03/26/22 12:59 Total Bilirubin 0.3 mg/dL (0.2-1.0) 03/27/22 02:47 AST 12 U/L (15-37) L 03/27/22 02:47 ALT 16 U/L (12-78) 03/27/22 02:47 Alkaline Phosphatase 70 U/L (45-117) 03/27/22 02:47 Home Medications: Amlodipine [Norvasc*] 10 mg PO DAILY 03/26/22 Diclofenac Sodium 50 mg PO TID 03/26/22 Duloxetine HCl [Cymbalta] 60 mg PO DAILY 03/26/22 Hydroxychloroquine [Plaquenil*] 400 mg PO DAILY 03/26/22 Levothyroxine Sodium [Levothyroxine] 175 mcg PO DAILY 03/26/22 Losartan Potassium 100 mg PO DAILY 03/26/22 Pravastatin Sodium 40 mg PO DAILY 03/26/22 Pregabalin [Lyrica] 150 mg PO BID 03/26/22 Tizanidine HCl 4 mg PO DAILY 03/26/22 Tramadol HCl [Ultram] 50 mg PO DAILY 03/26/22 Amitriptyline [Elavil*] 25 mg PO BEDTIME tab 03/28/22 Biotin 5,000 mcg PO DAILY 03/28/22 Doxycycline Hyclate 100 mg PO BID #14 cap 03/28/22 Guaif/Dm [Robitussin Dm*] 10 ml PO Q6H PRN #1 bottle 03/28/22 Max Strength Acid [employer] 150 mg PO DAILY 03/28/22 Metoprolol Tartrate [Lopressor*] 50 mg PO BID tab 03/28/22 Oseltamivir [Tamiflu*] 75 mg PO BID #7 cap 03/28/22 PARoxetine HCL [Paxil*] 30 mg PO DAILY tab 03/28/22 hydroCHLOROthiazide [Hydrochlorothiazide*] 12.5 mg PO DAILY cap 03/28/22 levoFLOXacin [Levaquin] 750 mg PO DAILY #7 tab 03/28/22 predniSONE [Deltasone*] 10 mg PO BID #10 tab 03/28/22 New Medications: predniSONE [Deltasone*] 10 mg PO BID #10 tab Doxycycline Hyclate 100 mg PO BID #14 cap levoFLOXacin [Levaquin] 750 mg PO DAILY #7 tab Guaif/Dm [Robitussin Dm*] 10 ml PO Q6H PRN #1 bottle PRN Reason: Cough Oseltamivir [Tamiflu*] 75 mg PO BID #7 cap Diet: AHA Activity: Ad vinod Followup: NONE,NONE [Primary Care Provider] - 1-2 Weeks Time spent managing pt's care (in minutes): 33
[2022-03-28] MEDS ORDERED: HYDROXYCHLOROQUINE 200MG TAB PO SCH (09:00)
[2022-03-28] MEDS ORDERED: HOME MED 1 EA UNK (Pravastatin Sodium [Pravastatin Sodium] 40 MG Tablet) PO SCH (09:00)
[2022-03-28] MEDS ORDERED: DULOXETINE 30 MG CAP PO SCH (09:00)
[2022-03-28] MEDS ORDERED: POTASSIUM CL SA 10 MEQ TAB PO ONE (09:00)
[2022-03-28] MEDS ORDERED: HOME MED 1 EA UNK (Duloxetine Hcl [Cymbalta] 60 MG Capsule.Dr) PO SCH (09:00)
[2022-03-28] MEDS: ASPIRIN EC 81 MG TAB PO SCH (09:00)
[2022-03-28] MEDS ORDERED: HOME MED 1 EA UNK (Levothyroxine Sodium [Levothyroxine] 175 MCG Capsule) PO SCH (09:00)
[2022-03-28] MEDS ORDERED: TRAMADOL HCL 50 MG TAB PO SCH (09:00)
[2022-03-28] MEDS: HOME MED 1 EA UNK (Biotin 5,000 MCG) PO SCH (09:00)
[2022-03-28] MEDS: [UNRECOGNIZED DRUG - OTHER] PO SCH (09:00)
[2022-03-28] MEDS: PARoxetine HCL 10 MG TAB PO SCH (10:58)
[2022-03-28] MEDS: METOPROLOL TAR 50 MG TAB PO SCH (10:58)
[2022-03-28] MEDS: PREGABALIN 150 MG CAP PO SCH (10:59)
[2022-03-28] MEDS: hydroCHLOROthiazide 12.5 MG CAP PO SCH (10:59)
[2022-03-28] MEDS: OSELTAMIVIR 75 MG CAP PO SCH (11:00)
[2022-03-28] MEDS: ENOXAPARIN 40 MG/0.4 ML SQ SCH (11:01)
[2022-03-28] MEDS: CEFTRIAXONE 1,000 MG in NA CHLORIDE 0.9% 50 ML IVPB SCH (11:05)
[2022-03-28 11:40] VITALS: O2SAT 100
[2022-03-28 12:43] VITALS: BP 133/88; TEMP 97.9
== END 2022-03-28 14:54 | disposition home or self-care (01) | DRG 871 ==
LOC: ER 07:26 → ERHOLD 12:23 → 4TH 21:59
PROVIDERS: ADMIT Internal Medicine; ATTEND Internal Medicine
DX: A41.89 Other specified sepsis (principal); J10.08 Influenza due to other identified influenza virus with other specified pneumonia; J15.9 Unspecified bacterial pneumonia; R04.2 Hemoptysis; I10 Essential (primary) hypertension; M06.9 Rheumatoid arthritis, unspecified; E87.6 Hypokalemia; M79.7 Fibromyalgia; E78.5 Hyperlipidemia, unspecified; E03.9 Hypothyroidism, unspecified; E66.09 Other obesity due to excess calories; Z68.34 Body mass index [BMI] 34.0-34.9, adult; Z79.52 Long term (current) use of systemic steroids; Z79.890 Hormone replacement therapy; Z79.899 Other long term (current) drug therapy; Z28.310 Unvaccinated for COVID-19; Z20.822 Contact with and (suspected) exposure to COVID-19
CPT/HCPCS: 0240U; 36415; 71045; 71275; 80048; 80053; 80076; 81003; 81015; 81025; 83605; 83735; 83880; 84100; 84145; 84484; 85025; 85379; 85610; 87040; 93005; 96361; 96365; 96375; 99285; J0456; J1650; J2405; J7030; J7040; J7050; J7613; J7644; Q9967

== ENCOUNTER 2024-06-17 17:23 | Emergency (ER) | payer BC, SELFPAY ==
[2024-06-17] MEDS ORDERED: ONDANSETRON 4 MG/2 ML VIAL ONE (19:44)
[2024-06-17] MEDS ORDERED: LORazepam 2 MG/ML VIAL ONE (19:45)
[2024-06-17] MEDS ORDERED: NA CHLORIDE 0.9% 1,000 ML ONE ×2 (19:45→20:39)
[2024-06-17 20:01] LABS: Absolute Basophils 0.2 K/uL (0-0.5); Absolute Eosinophils 0.1 K/uL (0-0.5); Absolute Lymphocytes (CBC) 2.3 K/uL (0.7-4.9); Absolute Monocytes 0.7 K/uL (0.1-1.3); Absolute Neutrophil 7.4 K/uL (1.8-8.0); Basophils % 1.4 % (0-1.3); Eosinophils % 0.9 % (0-4.4); Hematocrit 41.2 % (36.0-45.0); Hemoglobin 14.7 g/dL (12.0-15.0); Lymphocytes % 21.8 % (15.3-44.8); MCH 35.8 pg (27.0-35.0); MCHC 35.6 g/dL (32.0-36.0); MCV 100.5 fL (80-100); MPV 7.6 fL (7.6-11.3); Monocytes % 6.5 % (3.3-12.3); Neutrophils % 69.4 % (41.7-73.7); Platelets 378 thou/uL (152-406)
[2024-06-17 20:03] LABS: PT Prothrombin Time 11.8 SECONDS (9.4-12.5); PTT, Activated Partial Thromb 36.4 SECONDS (24.3-36.9); Protime INR 1.13
--- NOTE | 2024-06-17 20:07 | RAD REPORT ---
EXAMINATION: ONE VIEW CHEST XR CLINICAL INDICATION: Female, 44 years old.,vomiting TECHNIQUE: Frontal chest projection is submitted. Examination is limited by patient positioning and t echnique. COMPARISON: 03/26/2022 FINDINGS: The lungs are well inflated and clear. No pneumothorax or sizable effusion. The heart is normal in s ize. Mediastinal contours are unremarkable. IMPRESSION: No acute intrathoracic abnormalities.
[2024-06-17 20:13] LABS: Albumin/Globulin Ratio 1.1 (1.1-1.8); Anion Gap 13.3 mEq/L (5.0-15.0); Bilirubin Direct 0.4 mg/dL (0-0.2); Bilirubin Indirect, Calculated 0.7 mg/dL (0.2-0.8); Bilirubin Total 1.1 mg/dL (0.2-1.0); Globulin 3.6 g/dL (2.3-3.5); Magnesium 1.2 mg/dL (1.6-2.4); Potassium 3.3 mEq/L (3.5-5.1); Protein, Total 7.6 g/dL (6.4-8.2); Troponin High Sensitivity 5.9 pg/mL (<58.9)
[2024-06-17] MEDS ORDERED: FAMOTIDINE 20 MG/2 ML VIAL IV ONE (20:34)
[2024-06-17] MEDS ORDERED: METOCLOPRAMIDE 10 MG/2mL INJ ONE (20:36)
[2024-06-17] MEDS ORDERED: KETOROLAC 30 MG/ML INJ ONE (20:38)
[2024-06-17] MEDS ORDERED: Magnesium Sulfate 2gm IVPB 2 G/50 ML BAG IV ONE (20:38)
[2024-06-17] MEDS ORDERED: DIPHENHYDRAMINE 50 MG/ML VIAL ONE (20:38)
[2024-06-17 21:44] LABS: Specific Gravity 1.016 (1.005-1.030)
[2024-06-17 21:46] LABS: Specific Gravity 1.016 (1.005-1.030); Sqamous Epithelial <5 /HPF (None Seen); Urine Bacteria None Seen /HPF (<20); Urine Bilirubin NEGATIVE (Negative); Urine Blood 2+ (Negative); Urine Clarity Extremely Turbid (Clear); Urine Color Yellow (Yellow); Urine Crystals Unidentified Few /HPF (None Seen); Urine Culture Reflex Order NOT NEEDED; Urine Glucose NEGATIVE (Negative); Urine Ketones TRACE (Negative); Urine Micro Reflex YN NO BILL MICROSCOPIC; Urine Mucus 2+ /HPF (None Seen); Urine Nitrite NEGATIVE (Negative); Urine Protein 1+ (Negative); Urine Urobilinogen Normal (Normal); Urine WBC <5 /HPF (<5); Urine WBC Clump Rare /HPF (None Seen); Urine Yeast (Budding) Trace /HPF (None Seen); Urine pH 6.5 (5.0-7.0)
[2024-06-17 21:54] LABS: Barbiturates NEGATIVE (NEGATIVE); Benzodiazepines NEGATIVE (NEGATIVE); Cocaine NEGATIVE (NEGATIVE); METHAMPHETAM NEGATIVE (NEGATIVE); Methadone NEGATIVE (NEGATIVE); Opiates NEGATIVE (NEGATIVE); Phencyclidine NEGATIVE (NEGATIVE); THC Cannibis NEGATIVE (NEGATIVE)
--- NOTE | 2024-06-17 22:20 | RAD REPORT ---
EXAMINATION: CT Abdomen Pelvis W Contrast CLINICAL INDICATION: Female, 44 years old. vomiting TECHNIQUE: CT abdomen and pelvis was performed, after the administration of IV contrast, as per [facility] protocol. Axial, sagittal and coronal reconstructions were obtained. One or more of the following dose reduction techniques were used: Automated exposure control, adjustment of the mA and k V according to patient size, and iterative reconstruction. Unless otherwise specified, incidental findings do not require dedicated imaging follow-up. COMPARISON: 08/22/2018 FINDINGS: LOWER CHEST: The visualized lung bases are clear. Mild diffuse wall thickening at the distal esophagu s LIVER: Normal in size and contour. No focal lesion. BILIARY SYSTEM: Status post cholecystectomy. SPLEEN: Normal size. No focal lesion. PANCREAS: No mass, ductal dilation, or sam-pancreatic fluid. ADRENALS: Normal; no mass. KIDNEYS: 2 to 3 mm nonobstructing left renal interpolar calculus. Normal size and contour. No hydrone phrosis. URINARY BLADDER: Unremarkable. GASTROINTESTINAL TRACT: Left band in place. No evidence of free air, significant intra-abdominal free fluid, bowel obstruction or abscess. APPENDIX: Normal appendix. LYMPH NODES: No lymphadenopathy. MUSCULOSKELETAL: No acute or suspicious osseous abnormality. ADDITIONAL FINDINGS: None. IMPRESSION: No acute or concerning abnormalities seen in the abdomen or pelvis. Mild diffuse wall thickening of the distal esophagus, could reflect sequelae of esophagitis or reflux disease. Nonobstructing left renal interpolar 2-3 mm calculus.
--- NOTE | 2024-06-17 22:47 | RAD REPORT ---
EXAM: CT Head Brain Wo Cont HISTORY: vomiting COMPARISON: 11/10/2012 TECHNIQUE: Multiple contiguous axial images were obtained for a CT of the brain without contrast. Sag ittal and coronal reformats were performed. One or more of the following dose reduction techniques were used: Automated exposure control, adjus tment of the mA and kV according to patient size, and iterative reconstruction. Unless otherwise specified, incidental findings do not require dedicated imaging follow-up. FINDINGS: No evidence of hydrocephalus, intracranial hemorrhage, or extra-axial fluid collection. The brain is normal in morphology. The calvarium is intact. The visualized paranasal sinuses and mastoid air cells are essentially clear . IMPRESSION: No evidence of acute intracranial abnormality.
--- NOTE | 2024-06-17 23:00 | EDPHYS ---
Physician Documentation [facility] Name: Ema Maurer Age: 44 yrs Sex: Female : 1980 Arrival Date: 06/17/2024 Time: 17:23 Bed 15 Private MD: ED Physician Kevin Colón HPI: 06/17 18:10 This 44 yrs old Female presents to ER via Ambulatory with complaints of Vomiting, cp muscle cramps, dehydrated. 18:10 The patient presents to the emergency department with nausea, with "dry heaves", cp vomiting, that is continuous, described as bilious. Onset: The symptoms/episode began/occurred 2 day(s) ago. 18:10 Possible causes: unknown. Associated signs and symptoms: Pertinent negatives: cp constipation, diarrhea, fever, GI bleeding. Severity of symptoms: in the emergency department the symptoms are unchanged despite home interventions. 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 - Infectious Disease History:: Denies. - Social history:: Smoking status: Patient denies any tobacco usage or history of. ROS: 18:15 Constitutional: Negative for fever, cp 18:15 Abdomen/GI: Positive for nausea and vomiting, cp 18:15 Eyes: Negative for injury, pain, redness, and discharge, cp 18:15 ENT: Negative for drainage from ear(s), ear pain, sore throat, difficulty swallowing, difficulty handling secretions, 18:15 Cardiovascular: Negative for chest pain, palpitations, 18:15 Respiratory: Negative for cough, shortness of breath, wheezing, 18:15 Back: Positive for pain at rest, pain with movement, 18:15 Neuro: Negative for altered mental status, syncope, 18:15 All other systems are negative, cp Exam: 20:00 Constitutional: The patient appears alert, awake, non-diaphoretic, non-toxic, well cp developed, well nourished, in obvious distress, mildly distressed, uncomfortable, 20:00 Head/Face: Normocephalic, atraumatic. cp 20:00 Eyes: Periorbital structures: appear normal, Pupils: equal, round, and reactive to light and accomodation, Extraocular movements: intact throughout, Conjunctiva: normal, no exudate, no injection, Sclera: no appreciated abnormality, Lids and lashes: appear normal, bilaterally, 20:00 ENT: External ear(s): are unremarkable, Nose: is normal, Mouth: Lips: moist, Oral mucosa: moist, Posterior pharynx: Airway: no evidence of obstruction, patent, 20:00 Neck: ROM/movement: Meningeal signs: are not present, nuchal rigidity, is not appreciated, 20:00 Chest/axilla: Inspection: normal, 20:00 Cardiovascular: Rate: tachycardic, Rhythm: regular, 20:00 Respiratory: the patient does not display signs of respiratory distress, Respirations: normal, no use of accessory muscles, no retractions, labored breathing, is not present, Breath sounds: are clear throughout, no decreased breath sounds, no stridor, no wheezing, 20:00 Abdomen/GI: Inspection: abdomen appears normal, Bowel sounds: active, all quadrants, Palpation: soft, in all quadrants, mild abdominal tenderness, in the epigastric area, 20:00 Back: CVA tenderness, is absent, 20:00 Neuro: Orientation: to person, place \\T\\ time. Mentation: able to follow commands, Motor: moves all fours, no focal deficits, 21:02 ECG was reviewed by the Attending Physician. cp Vital Signs: 17:55 BP 138 / 90; Pulse 113; Resp 18; Temp 98.6; Pulse Ox 100% ; Weight 92.08 kg; Height 5 me1 ft. 4 in. ; 20:15 BP 185 / 116; Pulse 106; Resp 16; Temp 99; Pulse Ox 100% ; go2 22:35 BP 139 / 101; Pulse 98; Resp 16; Pulse Ox 100% ; cp4 23:34 BP 145 / 106; Pulse 97; Resp 18; Pulse Ox 99% ; cp4 17:55 Body Mass Index 34.84 (92.08 kg, 162.56 cm) me1 MDM: 22:56 Data reviewed: vital signs, nurses notes, lab test result(s), EKG, radiologic studies, cp CT scan, plain films. Consideration of Admission/Observation Escalation of care including admission/observation considered. I considered the following discharge prescriptions or medication management in the emergency department Medications were administered in the Emergency Department. See MAR. 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 23:00 Medical Screening Exam initiated cp 06/17 18:06 Order name: Basic Metabolic Panel; Complete Time: 20:26 cp 06/17 20:26 Interpretation: Normal except: K 3.3; BUN 5; CRE 1.20; GFR 57. cp / 18:06 Order name: CBC with Diff; Complete Time: 20:26 cp 06/17 21:51 Interpretation: Normal except: MCV 100.5; MCH 35.8; BASO% 1.4. cp / 18:06 Order name: LFT's; Complete Time: 20:26 cp 06/17 21:51 Interpretation: Normal except: BILIT 1.1; BILID 0.4; GLOB 3.6. cp / 18:06 Order name: Magnesium; Complete Time: 20:26 cp 06/17 21:52 Interpretation: Abnormal: MG 1.2. cp / 18:06 Order name: PT-INR; Complete Time: 20:26 cp 06/17 18:06 Order name: Troponin HS; Complete Time: 20:26 cp 06/17 21:52 Interpretation: Reviewed. cp / 18: Order name: Ptt, Activated; Complete Time: 20:26 cp 06/17 18:06 Order name: Urinalysis W/Microscopic; Complete Time: 21:50 cp 06/17 21:51 Interpretation: Normal except: [facility] Extremely Turbid; UKET TRACE; UBLD 2+; UPROT 1+; cp URBC 11-20; BYST Trace. 06/17 18:06 Order name: Test, Urine; Complete Time: 21:50 cp 06/17 21:51 Interpretation: Reviewed. cp / 18: Order name: Lipase; Complete Time: 20:26 cp 02/ 18:06 Order name: CK; Complete Time: 20:26 cp / 21:53 Interpretation: Reviewed. cp 02 20:32 Order name: UDS; Complete Time: 22:36 cp / 18:06 Order name: XRAY Chest (1 view); Complete Time: 20:26 cp / 20:31 Order name: CT Head Brain wo Cont; Complete Time: 22:54 cp / 22:54 Interpretation: Report reviewed. cp 06/17 20:31 Order name: CT Abd/Pelvis - IV Contrast Only; Complete Time: 22:36 cp 02 22:37 Interpretation: Report reviewed. cp 06/17 18:06 Order name: EKG; Complete Time: 18:06 cp 06/17 18:06 Order name: Cardiac monitoring; Complete Time: 19:50 cp 06/17 18:06 Order name: EKG - Nurse/Tech; Complete Time: 21:00 cp 06/17 18:06 Order name: IV Saline Lock; Complete Time: 19:50 cp 06/17 18:06 Order name: Labs collected and sent; Complete Time: 19:50 cp 06/17 18:06 Order name: O2 Per Protocol; Complete Time: 22:09 cp 06/17 18:06 Order name: O2 Sat Monitoring; Complete Time: 21:00 cp 06 22:37 Order name: PO challenge; Complete Time: 22:41 cp EC:02 Rate is 99 beats/min. Rhythm is regular. AK interval is normal. QRS interval is normal. cp QT interval is normal. Interpreted by me. Reviewed by me. Administered Medications: 19:48 Drug: Ondansetron IVP 4 mg IVP once; over 2 minutes Route: IVP; Site: left forearm; br2 23:28 Follow up: Response: No adverse reaction cp4 19:49 Drug: Ativan IVP 1 mg IVP once Route: IVP; Site: left forearm; br2 23:28 Follow up: Response: No adverse reaction cp4 19:49 Drug: NS 0.9% IV 1000 ml IV at 1 bolus Per protocol; to be given as a bolus over 60 br2 minutes Route: IV; Rate: 1 bolus; Site: left forearm; 23:28 Follow up: IV Status: Completed infusion cp4 20:38 CANCELLED (Physician Discretion): magnesium sulfate2 grams IM once cp 20:48 Drug: Famotidine IVP 20 mg IVP once; dilute with 10 mL 0.9% NaCl; give over 2 minutes go2 Route: IVP; Site: left antecubital; 23:28 Follow up: Response: No adverse reaction cp4 20:48 Drug: metoCLOPramide IVP 10 mg IVP once; over 1 to 2 minutes Route: IVP; Site: left go2 antecubital; 23:28 Follow up: Response: No adverse reaction cp4 20:48 Drug: diphenhydrAMINE IVP 25 mg IVP once Route: IVP; Site: left antecubital; go2 23:28 Follow up: Response: No adverse reaction cp4 20:48 Drug: NS 0.9% IV 1000 ml IV at 1000 ml once; to be given as a bolus over 60 minutes go2 Route: IV; Rate: 1000 ml; Site: left antecubital; 23:27 Follow up: IV Status: Completed infusion cp4 20:48 Drug: Ketorolac IVP 15 mg IVP once Route: IVP; Site: left antecubital; go2 23:27 Follow up: Response: No adverse reaction cp4 20:48 Drug: Magnesium Sulfate IVPB 2 grams IVPB once over 2 hrs Route: IVPB; Infused Over: 2 go2 hrs; Site: left antecubital; 21:55 Follow up: IV Status: Completed infusion go2 23:24 Drug: Potassium PO Effervescent Tablet 25 mEq PO once; dissolve in 4 ounces of water or cp4 juice Route: PO; 23:27 Follow up: Response: No adverse reaction cp4 Disposition: 06/18 23:25 Co-signature as Attending Physician, Kevin Colón MD I agree with the assessment and joel plan of care. Disposition Summary: 06/17/24 23:00 Discharge Ordered Notes: Location: Home cp Problem: new cp Symptoms: have improved cp Condition: Stable cp Diagnosis - Nausea with vomiting, unspecified cp - Hypokalemia cp - Hypomagnesemia cp - Volume depletion, unspecified cp Followup: cp - With: Shahzad Whitman MD - When: 1 week - Reason: Recheck today's complaints Discharge Instructions: - Discharge Summary Sheet cp - Dehydration, Adult cp - Potassium Content of Foods cp - Hypomagnesemia cp - Nausea and Vomiting, Adult cp - Hypokalemia cp Forms: - Medication Reconciliation Form cp - Antibiotic Education cp - Prescription Opioid Use cp - Patient Portal Instructions cp - Leadership Thank You Letter cp Prescriptions: - Protonix 40 mg Oral Tablet - take 1 tablet ORAL route once daily; 30 tablet; Refills: 0, Product Selection cp Permitted - ondansetron 8 mg Oral Tablet,disintegrating - take 1 tablet ORAL route every 12 hours; 15 tablet; Refills: 0, Product cp Selection Permitted Signatures: Dispatcher [employer] Kevin Solorio MD MD cha Page, Corey, [place] PA cp Sol Julio RN RN me1 Pushpa Ramirez cp4 Cierra Senior RN RN br2 Lynne Wooten RN RN go2 Corrections: (The following items were deleted from the chart) 06/17 18:00 17:58 PSHx: None; me1 me1 20:38 20:32 Magnesium Sulfate IM 2 grams IM once ordered. cp cp
--- NOTE | 2024-06-17 23:00 | ER ---
Nurse's Notes [facility] Name: Ema Maurer Age: 44 yrs Sex: Female : 1980 Arrival Date: 06/17/2024 Time: 17:23 Bed 15 Private MD: Diagnosis: Nausea with vomiting, unspecified;Hypokalemia;Hypomagnesemia;Volume depletion, unspecified Presentation: 06/17 17:55 Chief complaint: Patient states: cough, congestion, n/v x 2 days, muscle cramps, me1 elevated bp. Coronavirus screen: Vaccine status: Patient reports being unvaccinated. Ebola Screen: No symptoms or risks identified at this time. Initial Sepsis Screen: Does the patient meet any 2 criteria? HR > 90 bpm. Risk Assessment: Do you want to hurt yourself or someone else? Patient reports no desire to harm self or others. Onset of symptoms was June 15, 2024. 17:55 Method Of Arrival: Ambulatory mi1 17:55 Acuity: APRIL 3 me1 20:52 Initial Sepsis Screen: Does the patient have a suspected source of infection? No. go2 Patient's initial sepsis screen is negative. 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 - Infectious Disease History:: Denies. - Social history:: Smoking status: Patient denies any tobacco usage or history of. Screenin:51 [facility] ED Fall Risk Assessment (Adult) History of falling in the last 3 months, go2 including since admission No falls in past 3 months (0 pts) Confusion or Disorientation No (0 pts) Intoxicated or Sedated No (0 pts) Impaired Gait No (0 pts) Mobility Assist Device Used No (0 pt) Altered Elimination No (0 pt) Score/Fall Risk Level 0 - 2 = Low Risk. Abuse screen: Denies threats or abuse. Denies injuries from another. Nutritional screening: No deficits noted. Tuberculosis screening: No symptoms or risk factors identified. Assessment: 20:49 Reassessment: Patient appears in no apparent distress at this time. No changes from go2 previously documented assessment. General: Appears in no apparent distress. comfortable, Behavior is calm, cooperative, appropriate for age. Pain: Complains of pain in Generalized. Pain: Quality of pain is described as aching, Pain began Is Alleviated by. Neuro: No deficits noted. Dawson Agitation-Sedation Scale (RASS):. Cardiovascular: No deficits noted. Rhythm is sinus tachycardia. Respiratory: No deficits noted. Breath sounds are clear bilaterally. GI: Reports cramping, nausea, vomiting. GI: Abdomen is flat, non-distended. : No deficits noted. No signs and/or symptoms were reported regarding the genitourinary system. EENT: No deficits noted. No signs and/or symptoms were reported regarding the EENT system. Derm: No deficits noted. No signs and/or symptoms reported regarding the dermatologic system. Vital Signs: 17:55 BP 138 / 90; Pulse 113; Resp 18; Temp 98.6; Pulse Ox 100% ; Weight 92.08 kg; Height 5 me1 ft. 4 in. ; 20:15 BP 185 / 116; Pulse 106; Resp 16; Temp 99; Pulse Ox 100% ; go2 22:35 BP 139 / 101; Pulse 98; Resp 16; Pulse Ox 100% ; cp4 23:34 BP 145 / 106; Pulse 97; Resp 18; Pulse Ox 99% ; cp4 17:55 Body Mass Index 34.84 (92.08 kg, 162.56 cm) mi1 ED Course: 17:27 Patient arrived in ED. al6 17:34 Kevin Moe PA is PHCP. cp 17:35 Kevin Colón MD is Attending Physician. cp 17:58 Triage completed. me1 17:58 Arm band placed on Patient placed in an exam room. me1 19:30 Inserted saline lock: 22 gauge in left antecubital area, using aseptic technique. Blood mm11 collected. Flushed with 10 mL NS. 19:50 Ptt, Activated Sent. mm11 19:50 Lipase Sent. mm11 19:50 CK Sent. mm11 19:50 Basic Metabolic Panel Sent. mm11 19:50 CBC with Diff Sent. mm11 19:50 LFT's Sent. mm11 19:50 Magnesium Sent. mm11 19:50 PT-INR Sent. mm11 19:50 Troponin HS Sent. mm11 19:52 XRAY Chest (1 view) In Process Unspecified. EDMS 20:14 Lynne Wooten, RN is Primary Nurse. go2 20:22 Test, Urine Sent. go2 20:51 Patient has correct armband on for positive identification. Bed in low position. Call go2 light in reach. Side rails up X2. Adult w/ patient. Provided Education on: wait times, fall risk. 20:51 No provider procedures requiring assistance completed. go2 21:31 UDS Sent. go2 21:43 Test, Urine Sent. mm11 21:43 Urinalysis W/Microscopic Sent. mm11 21:43 UDS Sent. mm11 22:06 CT Head Brain wo Cont In Process Unspecified. EDMS 22:06 CT Abd/Pelvis - IV Contrast Only In Process Unspecified. EDMS 22:59 Shahzad Whitman MD is Referral Physician. cp 23:35 intact, bleeding controlled, No redness/swelling at site. Pressure dressing applied. cp4 Administered Medications: 19:48 Drug: Ondansetron IVP 4 mg IVP once; over 2 minutes Route: IVP; Site: left forearm; br2 23:28 Follow up: Response: No adverse reaction cp4 19:49 Drug: Ativan IVP 1 mg IVP once Route: IVP; Site: left forearm; br2 23:28 Follow up: Response: No adverse reaction cp4 19:49 Drug: NS 0.9% IV 1000 ml IV at 1 bolus Per protocol; to be given as a bolus over 60 br2 minutes Route: IV; Rate: 1 bolus; Site: left forearm; 23:28 Follow up: IV Status: Completed infusion cp4 20:38 CANCELLED (Physician Discretion): magnesium sulfate2 grams IM once cp 20:48 Drug: Famotidine IVP 20 mg IVP once; dilute with 10 mL 0.9% NaCl; give over 2 minutes go2 Route: IVP; Site: left antecubital; 23:28 Follow up: Response: No adverse reaction cp4 20:48 Drug: metoCLOPramide IVP 10 mg IVP once; over 1 to 2 minutes Route: IVP; Site: left go2 antecubital; 23:28 Follow up: Response: No adverse reaction cp4 20:48 Drug: diphenhydrAMINE IVP 25 mg IVP once Route: IVP; Site: left antecubital; go2 23:28 Follow up: Response: No adverse reaction cp4 20:48 Drug: NS 0.9% IV 1000 ml IV at 1000 ml once; to be given as a bolus over 60 minutes go2 Route: IV; Rate: 1000 ml; Site: left antecubital; 23:27 Follow up: IV Status: Completed infusion cp4 20:48 Drug: Ketorolac IVP 15 mg IVP once Route: IVP; Site: left antecubital; go2 23:27 Follow up: Response: No adverse reaction cp4 20:48 Drug: Magnesium Sulfate IVPB 2 grams IVPB once over 2 hrs Route: IVPB; Infused Over: 2 go2 hrs; Site: left antecubital; 21:55 Follow up: IV Status: Completed infusion go2 23:24 Drug: Potassium PO Effervescent Tablet 25 mEq PO once; dissolve in 4 ounces of water or cp4 juice Route: PO; 23:27 Follow up: Response: No adverse reaction cp4 Medication: 20:52 VIS not applicable for this client. go2 Outcome: 23:00 Discharge ordered by MD. cp 23:35 Discharged to home ambulatory, cp4 23:35 Condition: stable 23:35 Discharge instructions given to patient, family, Instructed on discharge instructions, follow up and referral plans. medication usage, Demonstrated understanding of instructions, follow-up care, medications, Prescriptions given X 2, 23:35 Patient left the ED. cp4 Signatures: Dispatcher [employer] EDMS Kevin Moe PA PA cp Sol Julio, RN RN me1 Pushpa Ramirez cp4 Cierra Senior RN RN br2 Lynne Wooten RN RN go2 Theresa [email or web address] hilda ellis mm11 Corrections: (The following items were deleted from the chart) 18:00 17:58 PSHx: None; me1 me1 19:51 19:50 Urinalysis W/Microscopic+U.LAB.BRZ drawn and sent. mm11 mm11
[2024-06-17] MEDS ORDERED: POTASSIUM 25 MEQ EFFERV TAB ONE (23:15)
[2024-06-18 00:13] VITALS: TEMP 99
[2024-06-18 00:15] VITALS: BP 145/106; O2SAT 99
--- NOTE | 2024-06-18 13:39 | EKG ---
Test Date: 2024-06-17 Test Time: 20:56:04 Stand Grinder: CHARLIE MEASUREMENT RESULTS: Intervals: Rate: 99 VA: 144 QRSD: 78 QT: 346 QTc: 444 [place]: P: 68 VA: 144 QRS: 20 T: 7 INTERPRETIVE STATEMENTS: Normal sinus rhythm Normal ECG Compared to ECG 03/26/2022 07:58:29 Sinus tachycardia no longer present Electronically Signed On 06-18-24 13:38:06 ENRICHMENT SPECIALIST by Yousuf Loco
== END 2024-06-17 23:35 | disposition home or self-care (01) ==
LOC: ER 17:23
DX: E87.6 Hypokalemia (principal); E83.42 Hypomagnesemia; E86.9 Volume depletion, unspecified
CPT/HCPCS: 36415; 70450; 71045; 74177; 80048; 80076; 80307; 81001; 81025; 82550; 83690; 83735; 84484; 85025; 85610; 85730; 93005; 99284; J1200; J2405; J2765; J3475; J7030; Q9967